=== PATIENT | male | born 1965 ===

== ENCOUNTER 2017-01-24 00:03 | Inpatient (IN) ==
--- NOTE | 2017-01-24 01:17 | Emergency Department Note ---
I, Silvia Lopez, am scribing for, and in the presence of, Avani Brewer DO 00:39. I, Avani Brewer DO, personally performed the services described in this documentation, ascribed by Silvia Lopez in my presence, and it is both accurate and complete . Arrival - Arrival Chief Complaint: Chest Pain Stated Complaint: chest pain ED Nursing Triage Note: Transfere from [facility] pt orignally went in for left knee pain, while pt was there he started having some chest pain. Pt rates pain 5/10. Denies any n/v but was having some sob. Mode of Arrival: Stretcher Limitations: No Limitations Source: Patient - History of Present Illness HPI Narrative: Pt is a 51 y/o male who was transferred from [facility] for further evaluation of chest pain and mild SOB that started yesterday. Pt went to [place] originally for left knee pain s/p buckle handle tear of medial meniscus of left knee, but started having a burning sensation in left arm and shoulder. Pt notes he thought the "burning" sensation was radiating from his knee. Pt has associated sxs of diaphoresis, chest pain and some SOB but denies nausea. Pt's BNP was 15 and Creatinine of 1.3, while at [place]. Pt's BP is elevated in ED, 164/103. Pt is still having some SOB in ED while on 2L O2 sat of 97. Onset (ago): day(s) Consistency: constant Severity: moderate Severity scale (1-10): 5 Quality: aching Allergies/Adverse Reactions: Allergies Allergy/AdvReac Type Severity Reaction Status Date / Time Eggplant Allergy Intermediate Swelling Verified 03/15/15 11:58 of Lip/Tongue/Throat Liver Allergy Intermediate Swelling Verified 03/15/15 11:58 of Lip/Tongue/Throat Home Medications: Home Medications Medication Instructions Recorded Confirmed Type Albuterol Sulfate [Albuterol 2 puff INH BID 03/15/15 01/22/17 History Inhaler] Aspirin [Ecotrin] 81 mg PO DAILY 03/15/15 01/22/17 History Fluticasone Propionate [Flovent 250 mcg IH BID 03/15/15 01/22/17 History 250 mcg Diskus] Gabapentin 300 mg PO DAILY 03/15/15 01/07/17 History Isosorbide Mononitrate [Imdur] 30 mg PO DAILY 03/15/15 01/07/17 History Losartan [Cozaar] 50 mg PO DAILY 03/15/15 01/07/17 History Metoprolol Succinate 50 mg PO DAILY 03/15/15 01/07/17 History Pantoprazole Tab [Protonix Tab] 40 mg PO DAILY 03/15/15 01/07/17 History Theophylline ER Tab 300 mg PO DAILY 03/15/15 01/07/17 History hydrALAZINE TAB [Apresoline Tab] 25 mg PO DAILY 03/15/15 03/15/15 History Meclizine [Antivert] 25 mg PO QID PRN #20 tablet 10/01/15 01/07/17 Rx Ondansetron [Ondansetron Odt] 4 mg PO Q4H PRN #10 tab.rapdis 10/01/15 Rx HYDROcodone/ACETAMIN 5-325 [[place] 2 tablet PO Q4H PRN #20 tablet 01/22/17 Rx 5-325] Mometasone/Formoterol 200-5 2 puff INH DAILY 01/22/17 01/22/17 History [Dulera 200-5] Montelukast Tab [Singulair Tab] 10 mg PO DAILY 01/22/17 01/22/17 History Review of System - Review of System 12 point system: reviewed and no additional remarkable complaints except as stated - Review of System Constitutional: Present: diaphoresis. Absent: chills, fever Respiratory: Present: respiratory distress (SOB) Cardiovascular: Present: chest pain Gastrointestinal: Absent: abdominal pain Musculoskeletal: Present: arm pain (burning sensation in bilateral arms radiates to shoulders), leg pain (left knee) Skin: Absent: rash Neurological: Absent: headache Medical,Surgical,& Family Hx - Medical History Cardio: History of: CHF, Hypertension (medication), Cardiovascular Problems ( enlarge heart) Neurology: History of: Peripheral Neuropathy (medication), Vertigo (medication as needed) No history of: Seizures HEENT: History of: Eye Problem (glasses) Comment Only: HEENT Problems (SINUS SURGERY TO BIOSPY SINUS GROWTH) Endocrine: History of: Dyslipidemia Respiratory: History of: Bronchitis, Pneumonia, Respiratory Problems ( bronchospasm) Gastrointestinal: History of: GERD (medication), Pancreatitis (3 years ago) - Surgical History Cardiac Surgeries: Sugical HX of: Cardiac Catheterization (2013) Abdominal Surgeries: Surgical HX of: Abdominal Surgery, EGD Orthopedic Surgeries: Comment Only: Total Knee Replacement (having left knee scope done january 22 2017) - Family History Family History: Reports;: Family Diabetes (brothers), Family Heart Disease ( BROTHER HEART MURMUR, MOM), Family Hypertension (brothers sister) Comment Only: Family Stroke (DAD) - Social History Smoking Status: Never smoker Exam Vital Signs: Vital Signs Temperature 97.3 F L 01/24/17 01:21 Pulse Rate 80 01/24/17 01:21 Respiratory Rate 22 01/24/17 01:21 Blood Pressure 154/105 01/24/17 01:21 O2 Sat by Pulse Oximetry 98 01/24/17 00:03 - General General appearance: alert, anxious, in distress - Head Head exam: Present: atraumatic, normocephalic - Eye Eye exam: Present: PERRL, EOMI - ENT ENT exam: Present: mucous membranes moist. Absent: mucous membranes dry - Neck Neck exam: Present: full ROM. Absent: tenderness - Chest Chest inspection: Present: symmetric chest wall rise. Absent: tenderness - Respiratory Respiratory exam: Present: normal lung sounds bilaterally. Absent: respiratory distress - Cardiovascular Cardiovascular exam: Present: regular rate, normal rhythm, normal heart sounds - Abdominal Exam Abdominal exam: Present: soft. Absent: tenderness - Extremities Exam Extremities exam: Present: tenderness (left knee has incision consistent to previous surgery with mild swelling around incision sites). Absent: full ROM ( limited due to pain), pedal edema, calf tenderness - Neurological Exam Neurological exam: Present: alert, oriented X3, CN II-XII intact - Psychiatric Psychiatric exam: Present: normal affect, normal mood - Skin Skin exam: Present: warm, dry Results - Labs Lab Results: I have reviewed the patients labs Labs: Laboratory Tests 01/24/17 01:14 Total Creatine Kinase 205 CK-MB (CK-2) 1.8 Troponin I 0.023
[2017-01-24 01:44] LABS: Troponin I Only 0.023 NG/ML (0.00-0.045)
[2017-01-24] MEDS ORDERED: ONDANSETRON 4 MG/2 ML VIAL ONE (01:48)
[2017-01-24] MEDS ORDERED: MORPHINE 2 MG/1 ML SYRINGE ONE (01:48)
[2017-01-24] MEDS ORDERED: ONDANSETRON 4 MG/2 ML VIAL IV STA (01:49)
[2017-01-24] MEDS ORDERED: MORPHINE 2 MG/1 ML SYRINGE IV STA (01:49)
[2017-01-24] MEDS ORDERED: HEPARIN 1,000 UNIT/1 ML VIAL IV STA (02:14)
[2017-01-24] MEDS ORDERED: HEPARIN 5,000 UNIT/1 ML VIAL ONE ×2 (02:30)
[2017-01-24 03:16] LABS: Basophils % 0.4 % (0.0-0.8); Eosinophils # 0.2 10*3/uL (0.0-0.87); Eosinophils % 2.1 % (0.00-10.9); Hemoglobin 14.6 GM/DL (14.0-18.0); Immature Granulocytes % 0.3 %; Immature Granulocytes Absolute 0.02 #; Lymphocytes # 2.2 10*3/uL (1.4-4.0); Lymphocytes % 31.3 % (21.2-54.2); Mean Corpuscular HGB Conc 34.8 GM/DL (32-36); Mean Corpuscular Hemoglobin 30 PG (27-34); Mean Corpuscular Volume 87.3 FL (87-102); Mean Platelet Volume 10.7 FL (9.6-12.0); Monocytes # 0.9 10*3/uL (0.11-0.8); Monocytes % 12.2 % (1.7-12.7); Neutrophils # 3.8 10*3/uL (1.4-7.4); Neutrophils % 53.7 % (38.7-73.9); Platelet Count 146 T/CUMM (130-400); Red Blood Count 4.81 MC/CUMM (3.8-5.5); Red Cell Distribution Width 12.9 % (9.3-17.3)
[2017-01-24 03:31] LABS: Calcium 8.4 MG/DL (8.5-10.1); Osmolality,Calculated 290.6 MOS/KG (273-304); Potassium 3.4 MMOL/L (3.5-5.1)
--- NOTE | 2017-01-24 03:39 | Hospitalist History & Physical ---
Assessment and Plan (1) Chest pain Status: Acute Assessment and plan: Currently stable, this month been result of the pulmonary embolus Current Visit: Yes (2) Asthma Status: Acute Assessment and plan: Stable continue home medications. She will be put on duo nebs while here dose of 1 unit dose every 6 hours and as needed Current Visit: Yes (3) Pulmonary embolus Status: Acute Assessment and plan: Patient is started on heparin protocol dose. Will follow PTT protocol for management of her current treatment. Tomorrow decisions will be made as to whether to continue Coumadin or put the patient on anti-factor X medications. Risk factor for his DVT obviously the recent surgery. Patient will be admitted to telemetry of the service of Dr. Braydon Warren Current Visit: Yes History of Present Illness Chief complaint: Chest pain Pulmonary embolism History of present illness: Mr. Wheeler is a 51 year old male with past medical history of hypertension, asthma, recent arthroscopic procedure on the left knee done yesterday started having some chest pain sent to [facility] patient was sent to the emergency room here. Emergency room a CT of verifies presence of a pulmonary embolus. Does have some cough pain in the left cuff. Is currently in the emergency room having started heparin. The emergency room doctor called me to come and see the patient for admission. Patient is currently stable enough. I am planning to send him to telemetry Home Medications Medication Instructions Recorded Confirmed Type Albuterol Sulfate [Albuterol 2 puff INH BID 03/15/15 01/22/17 History Inhaler] Aspirin [Ecotrin] 81 mg PO DAILY 03/15/15 01/22/17 History Fluticasone Propionate [Flovent 250 mcg IH BID 03/15/15 01/22/17 History 250 mcg Diskus] Gabapentin 300 mg PO DAILY 03/15/15 01/07/17 History Isosorbide Mononitrate [Imdur] 30 mg PO DAILY 03/15/15 01/07/17 History Losartan [Cozaar] 50 mg PO DAILY 03/15/15 01/07/17 History Metoprolol Succinate 50 mg PO DAILY 03/15/15 01/07/17 History Pantoprazole Tab [Protonix Tab] 40 mg PO DAILY 03/15/15 01/07/17 History Theophylline ER Tab 300 mg PO DAILY 03/15/15 01/07/17 History hydrALAZINE TAB [Apresoline Tab] 25 mg PO DAILY 03/15/15 03/15/15 History Meclizine [Antivert] 25 mg PO QID PRN #20 tablet 10/01/15 01/07/17 Rx Ondansetron [Ondansetron Odt] 4 mg PO Q4H PRN #10 tab.rapdis 10/01/15 Rx HYDROcodone/ACETAMIN 5-325 [[place] 2 tablet PO Q4H PRN #20 tablet 01/22/17 Rx 5-325] Mometasone/Formoterol 200-5 2 puff INH DAILY 01/22/17 01/22/17 History [Dulera 200-5] Montelukast Tab [Singulair Tab] 10 mg PO DAILY 01/22/17 01/22/17 History Allergies Allergy/AdvReac Type Severity Reaction Status Date / Time Eggplant Allergy Intermediate Swelling Verified 03/15/15 11:58 of Lip/Tongue/Throat Liver Allergy Intermediate Swelling Verified 03/15/15 11:58 of Lip/Tongue/Throat Medical,Surgical,& Family Hx - Medical History Cardio: History of: CHF, Hypertension (medication), Cardiovascular Problems ( enlarge heart) Neurology: History of: Peripheral Neuropathy (medication), Vertigo (medication as needed) No history of: Seizures HEENT: History of: Eye Problem (glasses) Comment Only: HEENT Problems (SINUS SURGERY TO BIOSPY SINUS GROWTH) Endocrine: History of: Dyslipidemia Respiratory: History of: Bronchitis, Pneumonia, Respiratory Problems ( bronchospasm) Gastrointestinal: History of: GERD (medication), Pancreatitis (3 years ago) - Surgical History Cardiac Surgeries: Sugical HX of: Cardiac Catheterization (2013) Abdominal Surgeries: Surgical HX of: Abdominal Surgery, EGD Orthopedic Surgeries: Comment Only: Total Knee Replacement (having left knee scope done january 22 2017) - Family History Family History: Reports;: Family Diabetes (brothers), Family Heart Disease ( BROTHER HEART MURMUR, MOM), Family Hypertension (brothers sister) Comment Only: Family Stroke (DAD) - Social History Smoking Status: Never smoker Frequency of Alcohol Use: None Type of Drug Use: None 12 point system: reviewed and no additional remarkable complaints except as stated (She is currently not in any distress. Review of systems involve the chief complaint is her presenting illness and past medical history 12 point system was locked) Exam - Constitutional General appearance: over weight - Head Head exam: Present: normocephalic, atraumatic - Eye Eye exam: Present: EOMI Pupils: Present: KATERIN - ENT ENT exam: Present: normal oropharynx - Neck Neck exam: Present: other (Neck is supple midline trachea no adenopathy no JVD) - Respiratory Respiratory exam: Present: clear to auscultation bilaterally, other (No wheezing no rales no rhonchi no respiratory distress) - Cardiovascular Cardiovascular exam: Present: regular rate and rhythm, other (No gallops no murmur) - GI/Abdominal GI/Abdominal exam: Present: normal bowel sounds, soft, other (No rebound tenderness no guarding) - Extremities Exam Extremities exam: Present: full ROM, other (Tender left calf patient has had surgery of the left knee. It is tender to palpation no effusion is obvious.) - Neurological Exam Neurological exam: Present: oriented X3, CN II-XII intact - Psychiatric Psychiatric exam: Present: normal affect, normal mood - Skin Skin exam: Present: normal color, warm, dry Results - Labs CBC & BMP: 01/24/17 01:14 01/24/17 01:14 Lab Results: I have reviewed the past 24 hour labs (Noted hypokalemia of 3.4 mild hyponatremia and hypochloremia)
[2017-01-24] MEDS ORDERED: hydrALAZINE 10 MG TABLET PO PRN (05:25)
--- NOTE | 2017-01-24 07:46 | CT Report ---
Exam: CT chest with contrast, PE study Date: 01/24/2017 Comparison: 09/26/2013 Reason: Shortness of breath, recent left knee scope Technique: Axial images of the chest were obtained after administration of 80 cc of IV Omnipaque 350 intravenous contrast. Coronal reformatted images were also acquired. The study was performed per pulmonary embolism protocol. Total DLP: 510.00 This exam was initially interpreted by [facility]. Findings: The heart is normal in size with small cardiac fat pads. Limited contrast in the nondilated thoracic aorta. Filling defects in the right segmental and subsegmental pulmonary arteries especially in the right upper lobe and right lower lobe. Calcified granulomata/nodes including calcified granulomata in the spleen. Fatty infiltration of the liver. Degenerative changes are noted. Progressive atelectasis especially at the lung bases. Impression: Evidence of right pulmonary emboli. Progressive atelectasis. Old healed granulomatous disease with fatty infiltration of liver. Dr. Saha discussed these findings with Dr. Brewer at 1:41 AM on 01/24/2017. Critical test results This CT exam was performed using one or more the following dose reduction techniques: Automated exposure control, adjustment of the MA and/or KV according to patient size, or use of iterative reconstruction technique. PROCEDURE INTERPRETED AT [facility] DEPARTMENT OF RADIOLOGY Final Report Signed by: Dr. Jelly Denis
[2017-01-24 09:13] LABS: Basophils % 0.4 % (0.0-0.8); Eosinophils # 0.1 10*3/uL (0.0-0.87); Eosinophils % 1.7 % (0.00-10.9); Hemoglobin 15.1 GM/DL (14.0-18.0); Immature Granulocytes % 0.3 %; Immature Granulocytes Absolute 0.02 #; Lymphocytes # 1.9 10*3/uL (1.4-4.0); Lymphocytes % 26.6 % (21.2-54.2); Mean Corpuscular HGB Conc 34.3 GM/DL (32-36); Mean Corpuscular Hemoglobin 30 PG (27-34); Mean Corpuscular Volume 87.8 FL (87-102); Mean Platelet Volume 11.1 FL (9.6-12.0); Monocytes # 0.8 10*3/uL (0.11-0.8); Monocytes % 11.2 % (1.7-12.7); Neutrophils # 4.3 10*3/uL (1.4-7.4); Neutrophils % 59.8 % (38.7-73.9); Platelet Count 164 T/CUMM (130-400); Red Blood Count 5.01 MC/CUMM (3.8-5.5); Red Cell Distribution Width 12.9 % (9.3-17.3); White Blood Count 7.2 T/CUMM (4-12)
[2017-01-24] MEDS: THEOPHYLLINE ER 300 MG TABLET PO SCH (09:36)
[2017-01-24] MEDS: GABAPENTIN 300 MG CAPSULE PO SCH (09:37)
[2017-01-24] MEDS: ASPIRIN EC 81 MG TABLET PO SCH (09:38)
[2017-01-24] MEDS: PANTOPRAZOLE 40 MG TABLET PO SCH (09:38)
[2017-01-24] MEDS: ISOSORBIDE MONONITRATE 30 MG TABLET PO SCH (09:38)
[2017-01-24] MEDS: MONTELUKAST 10 MG TABLET PO SCH (09:39)
[2017-01-24] MEDS: LOSARTAN 50 MG TABLET PO SCH (09:39)
[2017-01-24] MEDS: METOPROLOL SUCCINATE XL 50 MG TABLET PO SCH (09:39)
[2017-01-24] MEDS: hydrALAZINE 25 MG TABLET PO SCH (09:40)
--- NOTE | 2017-01-24 10:30 | EKG Report ---
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
[2017-01-24] MEDS: IPRATROPIUM 500 MCG/2.5 ML NEB RESP TX SCH ×3 (11:20→19:30)
[2017-01-24 12:21] LABS: PT Patient Result 10.8 SECS
--- NOTE | 2017-01-24 12:29 | Orthopedic Consult Note ---
History of Present Illness Chief complaint: Chest pain History of present illness: Mr. Wheeler is a 51 year old male Who underwent left knee arthroscopy for medial meniscal tear on 01/22/2017. On 08/2017 he started having chest pain and shortness of breath and was seen at [facility] and transferred to our hospital for further evaluation. CT scan showed a small right upper and lower pulmonary embolism and he was admitted to the hospital for anticoagulation and medical management. He states that he injured his knee in November and had knee swelling and some left leg swelling since the injury. He denies any numbness or tingling. Denies any other complaints. States he still has some mild swelling to his left knee, that the swelling to his left leg has resolved. Denies any other complaints. States that overall he is feeling much better today. Denies any chest pain or shortness of breath at the time of exam. He wants to know when he is allowed to go back to work. Home Medications Medication Instructions Recorded Confirmed Type Albuterol Sulfate [Albuterol 2 puff INH BID 03/15/15 01/24/17 History Inhaler] Aspirin [Ecotrin] 81 mg PO DAILY 03/15/15 01/24/17 History Gabapentin 300 mg PO Q8HR 03/15/15 01/24/17 History Isosorbide Mononitrate [Imdur] 30 mg PO DAILY 03/15/15 01/24/17 History Losartan [Cozaar] 100 mg PO DAILY 03/15/15 01/24/17 History Theophylline ER Tab 300 mg PO DAILY 03/15/15 01/24/17 History Meclizine [Antivert] 25 mg PO QID PRN #20 tablet 10/01/15 01/24/17 Rx HYDROcodone/ACETAMIN 5-325 [[place] 2 tablet PO Q4H PRN #20 tablet 01/22/17 Rx 5-325] Mometasone/Formoterol 200-5 2 puff INH BID 01/22/17 01/24/17 History [Dulera 200-5] Montelukast Tab [Singulair Tab] 10 mg PO DAILY 01/22/17 01/24/17 History Fluticasone Propionate [Flonase 1 spray BOTH NARES DAILY 01/24/17 01/24/17 History Allergy Relief] Ipratropium Neb [Atrovent Neb] 500 mcg RESP TX RT QID 01/24/17 01/24/17 History Metoprolol Tartrate Tab [Lopressor 50 mg PO BID 01/24/17 01/24/17 History Tab] Omeprazole 20 mg PO BID 01/24/17 01/24/17 History Allergies Allergy/AdvReac Type Severity Reaction Status Date / Time Eggplant Allergy Intermediate Swelling Verified 03/15/15 11:58 of Lip/Tongue/Throat Liver Allergy Intermediate Swelling Verified 03/15/15 11:58 of Lip/Tongue/Throat 12 point system: reviewed and no additional remarkable complaints except as stated Medical,Surgical,& Family Hx - Medical History Cardio: History of: CHF, Hypertension (medication), Cardiovascular Problems ( enlarge heart) Neurology: History of: Peripheral Neuropathy (medication), Vertigo (medication as needed) No history of: Seizures HEENT: History of: Eye Problem (glasses) Comment Only: HEENT Problems (SINUS SURGERY TO BIOSPY SINUS GROWTH) Endocrine: History of: Dyslipidemia Respiratory: History of: Bronchitis, Pneumonia, Respiratory Problems ( bronchospasm) Gastrointestinal: History of: GERD (medication), Pancreatitis (3 years ago) - Surgical History Cardiac Surgeries: Sugical HX of: Cardiac Catheterization (2013) Abdominal Surgeries: Surgical HX of: Abdominal Surgery, EGD Orthopedic Surgeries: Surgical HX of;: Orthopedic Surgery (Left knee arthroscopy 01/22/2017) Comment Only: Total Knee Replacement (having left knee scope done january 22 2017) - Family History Family History: Reports;: Family Diabetes (brothers), Family Heart Disease ( BROTHER HEART MURMUR, MOM), Family Hypertension (brothers sister) Comment Only: Family Stroke (DAD) - Social History Smoking Status: Never smoker Frequency of Alcohol Use: None Type of Drug Use: None Exam - Constitutional Vitals: Period Temp Pulse Resp BP Sys/Martini Pulse Ox Last 24 Hr 97.1 F-97.7 F 75-93 20-22 147-177/95-98 96-96 General appearance: normal weight, no acute distress - Head Head exam: Present: normal inspection, normocephalic, atraumatic - Eye Eye exam: Present: EOMI Pupils: Present: KATERIN - ENT ENT exam: Present: normal exam - Neck Neck exam: Present: normal inspection - Respiratory Respiratory exam: Absent: accessory muscle use, wheezes - Cardiovascular Cardiovascular exam: Present: regular rate and rhythm - GI/Abdominal GI/Abdominal exam: Absent: distended, firm - Extremities Exam Extremities exam: Present: normal inspection - Expanded Left Lower Hip exam: Present: normal inspection Upper Leg exam: Present: normal inspection Knee exam: Present: normal inspection (Bandages in place over incision sites. Minimal effusion. No erythema, ecchymosis, drainage. Compartments are soft.), swelling, tenderness Lower leg exam: Present: normal inspection. Absent: swelling, tenderness, Madhav 's sign Ankle exam: Present: normal inspection, full ROM Foot/Toe exam: Present: normal inspection, full ROM Neuro vascular tendon exam: Absent: motor deficit, sensory deficit - Neurological Exam Neurological exam: Present: alert, oriented X3, CN II-XII intact - Psychiatric Psychiatric exam: Present: normal affect, normal mood - Skin Skin exam: Present: normal color, warm Results - Labs CBC & BMP: 01/24/17 08:00 01/24/17 01:14 Lab Results: I have reviewed the past 24 hour labs - Diagnostic Findings Procedure: CT - chest: report reviewed by me, image reviewed by me Assessment and Plan (1) Pulmonary embolus Status: Acute Assessment and plan: Discussed with the patient and his who is present that risk of PE following a knee arthroscopy is less than 0.03%. Recommend continued anticoagulation and other medical management as per medicine. Current Visit: Yes (2) Bucket handle tear of medial meniscus of left knee Status: Acute Assessment and plan: Continue weightbearing as tolerated and range of motion exercises of the left knee. Crutches as needed for use. Discussed that the swelling is very common after the surgery and then it should continue to improve over time. Discussed I will defer return to work status to ask for Dr. Knutson in the medical service. Current Visit: No
[2017-01-24] MEDS: ENOXAPARIN 100 MG/ML SYRINGE SUBCUT SCH ×2 (12:37→23:39)
[2017-01-24] MEDS: MOMETASONE/FORMOTEROL 200-5 INHALER 8.8 GM INH SCH (16:37)
[2017-01-24] MEDS: WARFARIN 10 MG TABLET PO SCH (17:48)
[2017-01-25 06:10] LABS: Basophils % 0.5 % (0.0-0.8); Eosinophils # 0.2 10*3/uL (0.0-0.87); Eosinophils % 3.1 % (0.00-10.9); Hematocrit 42.1 VOL% (42.0-52.0); Immature Granulocytes % 0.5 %; Immature Granulocytes Absolute 0.03 #; Lymphocytes # 2.5 10*3/uL (1.4-4.0); Lymphocytes % 41.5 % (21.2-54.2); Mean Corpuscular HGB Conc 35.6 GM/DL (32-36); Mean Corpuscular Hemoglobin 30 PG (27-34); Monocytes # 0.7 10*3/uL (0.11-0.8); Monocytes % 11.7 % (1.7-12.7); Neutrophils # 2.6 10*3/uL (1.4-7.4); Neutrophils % 42.7 % (38.7-73.9); Platelet Count 180 T/CUMM (130-400); Red Blood Count 5.01 MC/CUMM (3.8-5.5); Red Cell Distribution Width 12.5 % (9.3-17.3); White Blood Count 6.1 T/CUMM (4-12)
[2017-01-25 06:13] LABS: PT Patient Result 10.6 SECS
[2017-01-25 06:53] LABS: Calcium 8.3 MG/DL (8.5-10.1); Magnesium 2.3 MG/DL (1.8-2.4); Osmolality,Calculated 290.6 MOS/KG (273-304); Potassium 3.6 MMOL/L (3.5-5.1)
[2017-01-25] MEDS: IPRATROPIUM 500 MCG/2.5 ML NEB RESP TX SCH ×4 (07:44→19:17)
[2017-01-25] MEDS: ALBUTEROL 2.5 MG/3 ML NEB RESP TX SCH ×2 (07:46→19:17)
[2017-01-25] MEDS: METOPROLOL SUCCINATE XL 50 MG TABLET PO SCH (08:31)
[2017-01-25] MEDS: MONTELUKAST 10 MG TABLET PO SCH (08:32)
[2017-01-25] MEDS: LOSARTAN 50 MG TABLET PO SCH (08:32)
[2017-01-25] MEDS: ISOSORBIDE MONONITRATE 30 MG TABLET PO SCH (08:32)
[2017-01-25] MEDS: PANTOPRAZOLE 40 MG TABLET PO SCH (08:32)
[2017-01-25] MEDS: THEOPHYLLINE ER 300 MG TABLET PO SCH (08:32)
[2017-01-25] MEDS: ASPIRIN EC 81 MG TABLET PO SCH (08:32)
[2017-01-25] MEDS: GABAPENTIN 300 MG CAPSULE PO SCH (08:32)
[2017-01-25] MEDS: hydrALAZINE 25 MG TABLET PO SCH (08:32)
[2017-01-25] MEDS: MOMETASONE/FORMOTEROL 200-5 INHALER 8.8 GM INH SCH (08:35)
[2017-01-25] MEDS: FLUTICASONE 50 MCG NASAL SPRAY 16 GM BOTTLE BOTH NARES SCH (09:45)
--- NOTE | 2017-01-25 11:02 | Orthopedic Progress Note ---
Assessment and Plan (1) Pulmonary embolus Status: Acute Assessment and plan: Continue medical management Current Visit: Yes (2) Bucket handle tear of medial meniscus of left knee Status: Acute Assessment and plan: Continue weightbearing as tolerated and range of motion exercises of the left knee. Crutches as needed for use. Current Visit: No Orthopedics - Subjective Interval history: States is feeling better today. Is working on range of motion exercises to his left knee. Exam - Constitutional Vitals: Period Temp Pulse Resp BP Sys/Martini Pulse Ox Last 24 Hr 96.8 F-97.9 F 78-94 16-20 105-160/62-93 95-99 - Extremities Exam Extremities exam: Present: normal inspection (Left lower extremity: Bandages overlying previous surgical incisions. No erythema. Decreased knee swelling from yesterday. Compartments are soft. Calf is supple. No lower leg swelling. Full active range of motion foot and ankle. Cap refill brisk. Sensation is intact.) Results - Labs CBC & BMP: 01/25/17 05:37 01/25/17 05:37 Lab Results: I have reviewed the past 24 hour labs
[2017-01-25] MEDS: ENOXAPARIN 100 MG/ML SYRINGE SUBCUT SCH ×2 (11:04→23:00)
--- NOTE | 2017-01-25 11:37 | Hospitalist Progress Note ---
Assessment and Plan (1) Pulmonary embolus Status: Acute Assessment and plan: The patient is admitted to the hospital for pulmonary embolism. INR this morning is 1 after having Coumadin first dose last night. We will continue the patient on therapeutic dose Lovenox until INR is greater than 2. Current Visit: Yes Qualifiers: Pulmonary embolism type: other Chronicity: acute Acute cor pulmonale presence: without acute cor pulmonale Qualified Code(s): I26.99 - Other pulmonary embolism without acute cor pulmonale Hospitalist: Subjective Interval history: The patient is resting quietly in bed today. He complains of some sharp pleuritic discomfort in the left posterior and lower lung field. The patient does not complain of shortness of breath or angina. Exam - Constitutional Vitals: Period Temp Pulse Resp BP Sys/Martini Pulse Ox Last 24 Hr 96.8 F-97.9 F 78-94 14-20 105-160/62-93 95-99 Exam: Constitutional System: Mild distress on account of pleurisy. No tremulousness. Head: Normocephalic, atraumatic. Ears, Nose and Throat System: No evidence of Otitis or Mastoiditis. No epistaxis or discharge Eyes System: Pupils equal, round, and reactive. Extraocular muscles intact. Neck: Supple, without adenopathy, No jugular venous distention. No thyromegaly , neck mass, or prior surgery apparent. Respiratory System: Chest clear to auscultation. Cardiovascular System: Heart with regular rate and rhythm. No murmur. GI System: Abdomen soft, nontender. Normo active bowel sounds present. Musculoskeletal System: limbs with trace edema left knee in the post operative state. No drainage from wounds. Neurological System: No discernable sensory deficit. No aphasia Psychiatric System: Conversation is rational Results - Labs CBC & BMP: 01/25/17 05:37 01/25/17 05:37 Lab Results: I have reviewed the past 24 hour labs
[2017-01-25] MEDS: WARFARIN 10 MG TABLET PO SCH (17:36)
[2017-01-26] MEDS: IPRATROPIUM 500 MCG/2.5 ML NEB RESP TX SCH ×4 (08:05→19:51)
[2017-01-26] MEDS: ALBUTEROL 2.5 MG/3 ML NEB RESP TX SCH ×2 (08:05→19:51)
[2017-01-26 08:12] LABS: INR 1.2; PT Patient Result 12.4 SECS
[2017-01-26] MEDS: MOMETASONE/FORMOTEROL 200-5 INHALER 8.8 GM INH SCH (09:27)
[2017-01-26] MEDS: FLUTICASONE 50 MCG NASAL SPRAY 16 GM BOTTLE BOTH NARES SCH (09:28)
[2017-01-26] MEDS: MONTELUKAST 10 MG TABLET PO SCH (09:29)
[2017-01-26] MEDS: METOPROLOL SUCCINATE XL 50 MG TABLET PO SCH (09:29)
[2017-01-26] MEDS: ISOSORBIDE MONONITRATE 30 MG TABLET PO SCH (09:29)
[2017-01-26] MEDS: GABAPENTIN 300 MG CAPSULE PO SCH (09:29)
[2017-01-26] MEDS: hydrALAZINE 25 MG TABLET PO SCH (09:29)
[2017-01-26] MEDS: LOSARTAN 50 MG TABLET PO SCH (09:29)
[2017-01-26] MEDS: ASPIRIN EC 81 MG TABLET PO SCH (09:29)
[2017-01-26] MEDS: PANTOPRAZOLE 40 MG TABLET PO SCH (09:29)
[2017-01-26] MEDS: THEOPHYLLINE ER 300 MG TABLET PO SCH (09:29)
[2017-01-26] MEDS: ENOXAPARIN 100 MG/ML SYRINGE SUBCUT SCH ×2 (11:24→22:56)
--- NOTE | 2017-01-26 13:55 | Hospitalist Progress Note ---
Assessment and Plan (1) Pulmonary embolus Status: Acute Assessment and plan: The patient is admitted to the hospital for pulmonary embolism. INR this morning is 1.2 after having Coumadin second dose last night. We will continue the patient on therapeutic dose Lovenox until INR is greater than 2. Current Visit: Yes Qualifiers: Pulmonary embolism type: other Chronicity: acute Acute cor pulmonale presence: without acute cor pulmonale Qualified Code(s): I26.99 - Other pulmonary embolism without acute cor pulmonale Hospitalist: Subjective Interval history: The patient was admitted to the hospital with post arthroscopy pulmonary embolism. The patient began having shortness of breath and pleuritic discomfort 24 hours following surgery and was readmitted for therapy. The patient has now had 2 doses of Coumadin and INR is 1.2. The patient continues on Lovenox. The patient has less pleurisy today. The patient is cooperating with physical therapy. Exam - Constitutional Vitals: Period Temp Pulse Resp BP Sys/Martini Pulse Ox Last 24 Hr 97 F-98.6 F 83-100 16-20 123-177/79-99 96-99 Exam: Constitutional System: Mild distress on account of pleurisy. No tremulousness. Head: Normocephalic, atraumatic. Ears, Nose and Throat System: No evidence of Otitis or Mastoiditis. No epistaxis or discharge Eyes System: Pupils equal, round, and reactive. Extraocular muscles intact. Neck: Supple, without adenopathy, No jugular venous distention. No thyromegaly , neck mass, or prior surgery apparent. Respiratory System: Chest clear to auscultation. Cardiovascular System: Heart with regular rate and rhythm. No murmur. GI System: Abdomen soft, nontender. Normo active bowel sounds present. Musculoskeletal System: limbs with trace edema left knee in the post operative state. No drainage from wounds. Neurological System: No discernable sensory deficit. No aphasia Psychiatric System: Conversation is rational Results - Labs CBC & BMP: 01/25/17 05:37 01/25/17 05:37 Lab Results: I have reviewed the past 24 hour labs Labs: INR equals 1.2
[2017-01-26] MEDS ORDERED: MECLIZINE 25 MG TABLET PO PRN (14:11)
[2017-01-26] MEDS ORDERED: WARFARIN 5 MG TABLET ONE (17:46)
[2017-01-26] MEDS: WARFARIN 10 MG TABLET PO SCH (17:47)
[2017-01-27 06:55] LABS: INR 1.4; PT Patient Result 15.5 SECS
[2017-01-27] MEDS: IPRATROPIUM 500 MCG/2.5 ML NEB RESP TX SCH ×4 (08:03→20:08)
[2017-01-27] MEDS: ALBUTEROL 2.5 MG/3 ML NEB RESP TX SCH ×2 (08:03→20:08)
[2017-01-27] MEDS: THEOPHYLLINE ER 300 MG TABLET PO SCH (09:40)
[2017-01-27] MEDS: hydrALAZINE 25 MG TABLET PO SCH (09:40)
[2017-01-27] MEDS: LOSARTAN 50 MG TABLET PO SCH (09:40)
[2017-01-27] MEDS: ASPIRIN EC 81 MG TABLET PO SCH (09:40)
[2017-01-27] MEDS: MONTELUKAST 10 MG TABLET PO SCH (09:40)
[2017-01-27] MEDS: PANTOPRAZOLE 40 MG TABLET PO SCH (09:41)
[2017-01-27] MEDS: MOMETASONE/FORMOTEROL 200-5 INHALER 8.8 GM INH SCH (09:41)
[2017-01-27] MEDS: GABAPENTIN 300 MG CAPSULE PO SCH (09:41)
[2017-01-27] MEDS: METOPROLOL SUCCINATE XL 50 MG TABLET PO SCH (09:41)
[2017-01-27] MEDS: ISOSORBIDE MONONITRATE 30 MG TABLET PO SCH (09:41)
[2017-01-27] MEDS: FLUTICASONE 50 MCG NASAL SPRAY 16 GM BOTTLE BOTH NARES SCH (09:42)
[2017-01-27] MEDS ORDERED: POLYETHYLENE GLYCOL POWDER 17 GM PACK PO PRN (10:46)
[2017-01-27] MEDS ORDERED: DOCUSATE SODIUM 100 MG CAPSULE PO PRN (10:46)
--- NOTE | 2017-01-27 10:49 | Hospitalist Progress Note ---
Assessment and Plan - Time spent with patient Time spent with patient: Greater than 30 minutes (1) Bucket handle tear of medial meniscus of left knee Status: Acute Assessment and plan: Weightbearing as tolerated. Pain medication when necessary. Follow orthopedic recommendations. Current Visit: No (2) Chest pain Status: Acute Current Visit: Yes (3) Asthma Status: Acute Assessment and plan: Not in acute exacerbation at this time. Bronchodilators and supplemental oxygen as needed. Current Visit: Yes (4) Pulmonary embolus Status: Acute Assessment and plan: Switch to Eliquis in the evening tomorrow after removal of sutures and discharged later in the evening. Current Visit: Yes Qualifiers: Pulmonary embolism type: other Chronicity: acute Acute cor pulmonale presence: without acute cor pulmonale Qualified Code(s): I26.99 - Other pulmonary embolism without acute cor pulmonale Hospitalist: Subjective Interval history: Patient was seen and examined together with his nurse, and he was lying comfortably in bed. He denies chest pain or shortness of breath. I reviewed the results of his CT angiogram PE protocol which showed right-sided pulmonary embolism. INR is still subtherapeutic. [place] to be removed from his left knee today I understand. We will ask his orthopedician whether he can be on eliquis from tomorrow. He has [employer] insurance which I think will cover for eliquis. Patient reported only minimal pain at his Op site in the left knee. Patient had arthroscopic repair of bucket handle tear of medial meniscus of left knee on 01/24 Ten point review of systems negative except as mentioned above. Exam - Constitutional Vitals: Period Temp Pulse Resp BP Sys/Martini Pulse Ox Last 24 Hr 97.8 F-98.4 F 88-99 16-22 139-171/86-109 95-99 General appearance: over weight - Head Head exam: Present: normocephalic, atraumatic - Eye Eye exam: Present: EOMI Pupils: Present: KATERIN - Neck Neck exam: Absent: lymphadenopathy, thyromegaly - Respiratory Respiratory exam: Present: clear to auscultation bilaterally. Absent: rales - Cardiovascular Cardiovascular exam: Present: regular rate and rhythm. Absent: diastolic murmur , JVD, systolic murmur - GI/Abdominal GI/Abdominal exam: Present: normal bowel sounds - Extremities Exam Extremities exam: Present: normal capillary refill. Absent: edema - Expanded Left Lower Neuro vascular tendon exam: Absent: pulse deficit, sensory deficit - Neurological Exam Neurological exam: Present: alert, oriented X3, CN II-XII intact - Psychiatric Psychiatric exam: Present: normal affect, normal mood Results - Labs CBC & BMP: 01/25/17 05:37 01/25/17 05:37 Lab Results: I have reviewed the past 24 hour labs Specialty Discharge - Follow Up or Referrals
--- NOTE | 2017-01-27 11:12 | Orthopedic Progress Note ---
Orthopedics - Subjective Interval history: Patient known to me from previous arthroscopy. Transitioning to p.o. anticoagulant likely home tomorrow we will remove alonzo prior to discharge would likely benefit from outpatient PT. Exam - Constitutional Vitals: Period Temp Pulse Resp BP Sys/Martini Pulse Ox Last 24 Hr 97.8 F-98.4 F 88-99 16-22 139-171/86-109 95-99 Results - Labs CBC & BMP: 01/25/17 05:37 01/25/17 05:37 Specialty Discharge - Follow Up or Referrals
[2017-01-27] MEDS: ENOXAPARIN 100 MG/ML SYRINGE SUBCUT SCH ×2 (11:42→23:40)
[2017-01-27] MEDS ORDERED: WARFARIN 5 MG TABLET ONE (17:31)
[2017-01-27] MEDS: WARFARIN 10 MG TABLET PO SCH (18:02)
[2017-01-28 06:27] LABS: Basophils % 0.7 % (0.0-0.8); Eosinophils # 0.2 10*3/uL (0.0-0.87); Eosinophils % 3.3 % (0.00-10.9); Hematocrit 46.8 VOL% (42.0-52.0); Hemoglobin 16.5 GM/DL (14.0-18.0); Immature Granulocytes % 0.3 %; Immature Granulocytes Absolute 0.02 #; Lymphocytes # 1.7 10*3/uL (1.4-4.0); Lymphocytes % 27.9 % (21.2-54.2); Mean Corpuscular HGB Conc 35.3 GM/DL (32-36); Mean Corpuscular Hemoglobin 30 PG (27-34); Mean Corpuscular Volume 85.1 FL (87-102); Mean Platelet Volume 11.1 FL (9.6-12.0); Monocytes # 0.8 10*3/uL (0.11-0.8); Monocytes % 13.6 % (1.7-12.7); Neutrophils # 3.3 10*3/uL (1.4-7.4); Neutrophils % 54.2 % (38.7-73.9); Platelet Count 217 T/CUMM (130-400); Red Cell Distribution Width 12.9 % (9.3-17.3); White Blood Count 6.1 T/CUMM (4-12)
[2017-01-28 06:48] LABS: INR 1.8; PT Patient Result 20.2 SECS
[2017-01-28 06:54] LABS: Calcium 9.4 MG/DL (8.5-10.1); Magnesium 2.3 MG/DL (1.8-2.4)
[2017-01-28] MEDS: ALBUTEROL 2.5 MG/3 ML NEB RESP TX SCH ×2 (08:11→21:22)
[2017-01-28] MEDS: IPRATROPIUM 500 MCG/2.5 ML NEB RESP TX SCH ×4 (08:11→21:22)
[2017-01-28] MEDS: PANTOPRAZOLE 40 MG TABLET PO SCH (09:47)
[2017-01-28] MEDS: THEOPHYLLINE ER 300 MG TABLET PO SCH (09:47)
[2017-01-28] MEDS: LOSARTAN 50 MG TABLET PO SCH (09:47)
[2017-01-28] MEDS: hydrALAZINE 25 MG TABLET PO SCH (09:48)
[2017-01-28] MEDS: MONTELUKAST 10 MG TABLET PO SCH (09:48)
[2017-01-28] MEDS: FLUTICASONE 50 MCG NASAL SPRAY 16 GM BOTTLE BOTH NARES SCH (09:48)
[2017-01-28] MEDS: ISOSORBIDE MONONITRATE 30 MG TABLET PO SCH (09:48)
[2017-01-28] MEDS: GABAPENTIN 300 MG CAPSULE PO SCH (09:48)
[2017-01-28] MEDS: MOMETASONE/FORMOTEROL 200-5 INHALER 8.8 GM INH SCH (09:48)
[2017-01-28] MEDS: ASPIRIN EC 81 MG TABLET PO SCH (09:48)
[2017-01-28] MEDS: METOPROLOL SUCCINATE XL 50 MG TABLET PO SCH (09:50)
[2017-01-28] MEDS: ENOXAPARIN 100 MG/ML SYRINGE SUBCUT SCH ×2 (10:23→23:03)
--- NOTE | 2017-01-28 13:12 | Hospitalist Progress Note ---
Assessment and Plan (1) Bucket handle tear of medial meniscus of left knee Status: Acute Assessment and plan: Weightbearing as tolerated. Pain medication when necessary. Follow orthopedic recommendations. Current Visit: No (2) Chest pain Status: Acute Current Visit: Yes (3) Asthma Status: Acute Assessment and plan: Not in acute exacerbation at this time. Bronchodilators and supplemental oxygen as needed. Current Visit: Yes (4) Pulmonary embolus Status: Acute Assessment and plan: Switch to Eliquis in the evening tomorrow after removal of sutures and discharged later in the evening. Current Visit: Yes Qualifiers: Pulmonary embolism type: other Chronicity: acute Acute cor pulmonale presence: without acute cor pulmonale Qualified Code(s): I26.99 - Other pulmonary embolism without acute cor pulmonale Hospitalist: Subjective Interval history: I was called by patient's nurse regarding his chest pain. He reported left- sided chest pain just under the left breast radiating to both arms but not to the jaw. Reported nausea but no vomiting. He is a little bit short of breath. He also reports pain and swelling in his left knee. He is status post left knee intervention at couple of days ago. He has right-sided PE. We will go ahead and get cardiac enzymes as well as EKG and chest x-ray before to evaluate. He is on full dose anticoagulation with bridging Lovenox and then warfarin. Will give 1 dose of aspirin therapeutic and await result of enzymes with EKG. Exam - Constitutional Vitals: Period Temp Pulse Resp BP Sys/Martini Pulse Ox Last 24 Hr 97.5 F-98.1 F 81-112 16-22 148-173/93-109 21-99 - Cardiovascular Cardiovascular exam: Present: other (Chest pain reproducible in the left chest wall) Results - Labs CBC & BMP: 01/28/17 05:46 01/28/17 05:46 Specialty Discharge - Follow Up or Referrals Follow up with: Jasvir Knutson Jr., MD [Physician] - 02/18/17 8:15 am
[2017-01-28] MEDS ORDERED: ASPIRIN CHEW 81 MG TABLET PO ONE (13:15)
[2017-01-28] MEDS ORDERED: MORPHINE 2 MG/1 ML SYRINGE IV PRN (13:16)
--- NOTE | 2017-01-28 13:22 | EKG Report ---
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
[2017-01-28 14:17] LABS: Troponin I Only < 0.015 NG/ML (0.00-0.045)
[2017-01-28 18:22] LABS: Troponin I Only < 0.015 NG/ML (0.00-0.045)
[2017-01-28] MEDS ORDERED: WARFARIN 5 MG TABLET ONE (18:45)
[2017-01-28] MEDS: WARFARIN 10 MG TABLET PO SCH (18:54)
[2017-01-28] MEDS ORDERED: amLODIPine 10 MG TABLET PO ONE (19:53)
[2017-01-29] MEDS: ALBUTEROL 2.5 MG/3 ML NEB RESP TX SCH ×2 (07:00→19:04)
[2017-01-29] MEDS: IPRATROPIUM 500 MCG/2.5 ML NEB RESP TX SCH ×4 (07:00→19:04)
[2017-01-29] MEDS: GABAPENTIN 300 MG CAPSULE PO SCH (10:07)
[2017-01-29] MEDS: THEOPHYLLINE ER 300 MG TABLET PO SCH (10:07)
[2017-01-29] MEDS: hydrALAZINE 25 MG TABLET PO SCH (10:07)
[2017-01-29] MEDS: ASPIRIN EC 81 MG TABLET PO SCH (10:07)
[2017-01-29] MEDS: PANTOPRAZOLE 40 MG TABLET PO SCH (10:07)
[2017-01-29] MEDS: amLODIPine 10 MG TABLET PO SCH (10:07)
[2017-01-29] MEDS: MONTELUKAST 10 MG TABLET PO SCH (10:07)
[2017-01-29] MEDS: ISOSORBIDE MONONITRATE 30 MG TABLET PO SCH (10:07)
[2017-01-29] MEDS: METOPROLOL SUCCINATE XL 50 MG TABLET PO SCH (10:07)
[2017-01-29] MEDS: LOSARTAN 50 MG TABLET PO SCH (10:07)
[2017-01-29] MEDS: MOMETASONE/FORMOTEROL 200-5 INHALER 8.8 GM INH SCH (10:08)
[2017-01-29] MEDS: FLUTICASONE 50 MCG NASAL SPRAY 16 GM BOTTLE BOTH NARES SCH (10:09)
--- NOTE | 2017-01-29 12:33 | EKG Report ---
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
[2017-01-29] MEDS: ENOXAPARIN 100 MG/ML SYRINGE SUBCUT SCH ×3 (14:55→21:19)
--- NOTE | 2017-01-29 15:00 | XRay Report ---
Exam: XR chest 1V Indication: Chest pain, history of pulmonary emboli Comparison study: Chest radiograph 01/05/[address] PE protocol 01/24/2017 Findings: The heart, mediastinum and bony structures are stable from prior. There is no focal consolidation, pneumothorax or pleural effusion identified. Partially calcified right suprahilar lymph node appears unchanged. Impression: No acute cardiopulmonary process. No significant change from prior. PROCEDURE INTERPRETED AT [facility] DEPARTMENT OF RADIOLOGY Final Report Signed by: Tavo Evans
--- NOTE | 2017-01-29 15:30 | Ultrasound Report ---
History: Shortness of breath. Pulmonary embolus Date: 01/29/2017 Study: Bilateral lower extremity color flow venous Doppler study Comparison exam: No previous venous ultrasound Color Doppler, wave form analysis, and compression analysis of the deep veins of both lower extremities from the common femoral vein level through the popliteal vein level shows that the veins are readily compressible. There is no abnormal intraluminal material to suggest thrombus. Waveform analysis is unremarkable. Ultrasound images were captured and archived Impression: Normal bilateral lower extremity color flow venous Doppler study. No evidence of acute DVT PROCEDURE INTERPRETED AT [facility] DEPARTMENT OF RADIOLOGY Final Report Signed by: Dr. Ramya Gonzalez
--- NOTE | 2017-01-29 15:47 | Hospitalist Progress Note ---
Assessment and Plan - Time spent with patient Time spent with patient: Less than 30 minutes (1) Pulmonary embolus Status: Acute Assessment and plan: CT pulmonary embolus protocol revealed right-sided pulmonary embolism. No pulmonary embolus on the left. Switch to Eliquis prior to discharge. Discussed this with patient. Currently, patient is on warfarin with subtherapeutic INR and being bridged with Lovenox. Current Visit: Yes Qualifiers: Pulmonary embolism type: other Chronicity: acute Acute cor pulmonale presence: without acute cor pulmonale Qualified Code(s): I26.99 - Other pulmonary embolism without acute cor pulmonale (2) Bucket handle tear of medial meniscus of left knee Status: Acute Assessment and plan: Weightbearing as tolerated. Pain medication when necessary. Follow orthopedic recommendations. Current Visit: No (3) Chest pain Status: Acute Assessment and plan: Patient said left-sided chest pain could be related to new pulmonary embolism on the left side. Troponin cycled x3 remained negative. Electrocardiogram reveals sinus tachycardia. Consulted Cardiology to see patient for discharge. Follow Cardiology recommendations. Current Visit: Yes (4) Asthma Status: Acute Assessment and plan: Not in acute exacerbation at this time. Bronchodilators and supplemental oxygen as needed. Current Visit: Yes Hospitalist: Subjective Interval history: The patient was admitted to the hospital with left knee post arthroscopy pulmonary embolism. The patient began having shortness of breath and pleuritic discomfort 24 hours following surgery and CT chest PE protocol revealed right sided Pulmonary embolism. He was readmitted for therapy. patient developed left sided chest pain last evening. Cardiac enzymes were cycled and remained negative. Electrocardiogram revealed sinus tachycardia. I did consult Cardiology for patient's chest pain The patient is currently on Lovenox and coumadin. He can be switched to eliquis or xarelto on discharge. Patient seen and examined. History reports intermittent left-sided chest pain under the left breast. He denies shortness of breath. Defer further management to Cardiology. Exam - Constitutional Vitals: Period Temp Pulse Resp BP Sys/Martini Pulse Ox Last 24 Hr 97.9 F-98.3 F 77-107 20-20 136-163/89-100 92-100 General appearance: over weight - Head Head exam: Present: normocephalic, atraumatic - Eye Eye exam: Present: EOMI Pupils: Present: KATERIN - Neck Neck exam: Absent: lymphadenopathy, thyromegaly - Respiratory Respiratory exam: Present: clear to auscultation bilaterally - Cardiovascular Cardiovascular exam: Absent: diastolic murmur, JVD, systolic murmur - Extremities Exam Extremities exam: Absent: edema - Neurological Exam Neurological exam: Present: alert, oriented X3 - Psychiatric Psychiatric exam: Present: normal affect, normal mood - Skin Skin exam: Present: normal color Results - Labs CBC & BMP: 01/28/17 05:46 01/28/17 05:46 Lab Results: I have reviewed the past 24 hour labs Specialty Discharge - Follow Up or Referrals Follow up with: Jasvir Knutson Jr., MD [Physician] - 02/18/17 8:15 am
--- NOTE | 2017-01-29 17:36 | Cardiology Consult Note ---
Marques Sanchez Vanessa, RN, am scribing for, and in the presence of, Alessandro Garay MD 17:36. Assessment and Plan - Time spent with patient Time spent with patient: Greater than 30 minutes (Due to assessment, planning, documentation, and medication review) (1) Pulmonary emboli Status: Acute Assessment and plan: Right sided emboli. Coumadin therapy. Echocardiogram pending. Current Visit: Yes (2) Bucket handle tear of medial meniscus of left knee Status: Acute Assessment and plan: Status post left knee arthroscopy on 01/22/[address] Knutson. Defer primary management to orthopedic services. Current Visit: No (3) Chest pain Status: Acute Assessment and plan: This is likely secondary to the pulmonary embolus. There is no evidence of cardiac ischemia at this time. Current Visit: Yes (4) Hypertension Status: Chronic Assessment and plan: This is not well controlled. Adjust medication regimen. Current Visit: Yes (5) Dyslipidemia Status: Acute Current Visit: Yes (6) Nonischemic cardiomyopathy Status: Acute Current Visit: Yes (7) Chronic kidney disease (CKD) Status: Acute Current Visit: Yes Qualifiers: Chronic kidney disease stage: stage 3 (moderate) Qualified Code(s): N18.3 - Chronic kidney disease, stage 3 (moderate) History of Present Illness - Data of Consult Patient: known to practice within the last 3 years Consult date: 01/29/17 Requesting Physician: Luis Juarez Primary care physician: [facility] - Consult Narrative Reason for consult: CP History of present illness: Mr. Wheeler is a 51 year old male who is routinely followed by Dr. Ashlyn Cortez for cardiology. Risk factors significant for hypertension, hyperlipidemia, and obesity. Past medical history includes nonischemic cardiomyopathy with EF of 15% most recently improved to 40%, chronic kidney disease stage III, congestive heart failure, GERD, and pancreatitis. He has also had a history of shortness of breath, has been evaluated by Dr. Wadsworth, and has had normal PFTs and CT of the chest. He presented to the [facility] on 01/24/17 for left knee pain status post left knee arthroscopy on 01/22/17 for meniscus tear of left knee performed by Dr. Knutson. While he was there he apparently developed some chest pain with mild shortness of breath, and he was transferred to [place]'s ER for further evaluation. Cardiac biomarkers were negative, twelve-lead EKG revealed sinus rhythm without acute ST segment changes. He had no diaphoresis, nausea or vomiting, palpitation, or presyncope. Chest CT obtained while in the ER revealed right-sided pulmonary emboli. He was admitted to telemetry to hospitalist service for further monitoring and treatment of PE. Since admission, he has been evaluated by orthopedic surgery. Physical therapy has been started. Medical management for pulmonary emboli has been started, and he is currently taking Coumadin 10 mg every evening. Most recent INR today is 1.8. He has been hemodynamically stable, but he has had left-sided chest pain today which she reported to radiate to both arms associated with swelling and pain of the left knee, and cardiology has been consulted to evaluate patient. Twelve-lead EKG this afternoon with some nonspecific T-wave changes but no acute ST segment elevation or ischemia. Venous Doppler ultrasound of bilateral lower extremities was obtained this afternoon also for lower extremity swelling , and we will review these results when available. Echocardiogram has been ordered, and this will be reviewed as well. He was last evaluated by Dr. Cortez in clinic on 11/18/16 for routine 6 month follow-up. He denied any chest pain or shortness of breath at that time. He had no LE edema or orthopnea. Blood pressures were well controlled at that time. Echocardiogram obtained on 10/20/16 showed normal LV size, mild LVH with moderately decreased LV systolic function, grade 1 diastolic dysfunction and ejection fraction of 40%. All other cardiac chambers of normal size and function, and there was no significant valvular disease. Most recent exercise nuclear stress test was October 2014, had nonspecific ST- T changes, and was negative for ischemia. Previous left and right heart catheterization in September 2013 revealed no significant coronary artery disease , and dilated cardiomyopathy with ejection fraction of 15% was diagnosed. As previously mentioned, ejection fraction has improved to 40% with medical management. Patient seen and examined on telemetry. is present at bedside. Patient lying in bed watching TV without acute distress noted. He denies chest pain specifically in the area, but does state that he has some discomfort in epigastric area. Describes this discomfort as a pressure, and reports that this does radiate up to his chest and sometimes into both arms. Admits to some nausea with no vomiting. Denies diaphoresis, shortness of breath, palpitation, or presyncope with this. Reports this discomfort started today after his left knee arthroscopy. Denies orthopnea, PND, or LE edema. He is in a sinus rhythm per telemetry monitoring without overt ectopy or arrhythmia noted, and he does have some slight tachycardia with pulse rate no greater than 105 bpm. He is hypertensive with systolic blood pressure 135-170 and diastolic BP 100. CC: Luis Juarez MD - Home Medications and Allergies Home Medications: Home Medications Medication Instructions Recorded Confirmed Type Albuterol Sulfate [Albuterol 2 puff INH BID 03/15/15 01/24/17 History Inhaler] Aspirin [Ecotrin] 81 mg PO DAILY 03/15/15 01/24/17 History Gabapentin 300 mg PO Q8HR 03/15/15 01/24/17 History Isosorbide Mononitrate [Imdur] 30 mg PO DAILY 03/15/15 01/24/17 History Losartan [Cozaar] 100 mg PO DAILY 03/15/15 01/24/17 History Theophylline ER Tab 300 mg PO DAILY 03/15/15 01/24/17 History Meclizine [Antivert] 25 mg PO QID PRN #20 tablet 10/01/15 01/24/17 Rx HYDROcodone/ACETAMIN 5-325 [[place] 2 tablet PO Q4H PRN #20 tablet 01/22/17 Rx 5-325] Mometasone/Formoterol 200-5 2 puff INH BID 01/22/17 01/24/17 History [Dulera 200-5] Montelukast Tab [Singulair Tab] 10 mg PO DAILY 01/22/17 01/24/17 History Albuterol/Ipratropium Neb [Duoneb] 3 ml RESP TX RT QID 01/24/17 01/24/17 History Fluticasone Propionate [Flonase 1 spray BOTH NARES DAILY 01/24/17 01/24/17 History Allergy Relief] Metoprolol Tartrate Tab [Lopressor 50 mg PO BID 01/24/17 01/24/17 History Tab] Omeprazole 20 mg PO BID 01/24/17 01/24/17 History Allergies/Adverse Reactions: Allergies Allergy/AdvReac Type Severity Reaction Status Date / Time Eggplant Allergy Intermediate Swelling Verified 03/15/15 11:58 of Lip/Tongue/Throat Liver Allergy Intermediate Swelling Verified 03/15/15 11:58 of Lip/Tongue/Throat - Constitutional Constitutional: Present: fatigue, weakness. Absent: anorexia, chills, daytime sleepiness, excessive sweating, fever(s), frequent falls, stops breathing during sleep, weight gain, weight loss - EENT Eyes: Absent: blurry vision Ears: Absent: decreased hearing Nose, mouth and throat: Absent: dysphagia, epistaxis, neck mass, tongue swelling - Cardiovascular Cardiovascular: Present: dyspnea (Upon presentation; none currently), other ( Epigastric pain). Absent: chest pain at rest, chest pain with activity, claudication, diaphoresis, edema, radiating jaw, neck or arm pain, lightheadedness, orthopnea - Respiratory Respiratory: Absent: cough, hemoptysis, dyspnea on exertion, wheezing, snoring, change in phlegm color - Gastrointestinal Gastrointestinal: Present: nausea. Absent: abdominal pain, cramping, dysphagia , early satiety, melena, vomiting, jaundice - Genitourinary Genitourinary: Absent: dysuria, flank pain, hematuria, nocturia - Musculoskeletal Musculoskeletal: Present: arthralgias. Absent: joint swelling, muscle weakness , myalgias - Neurological Neurological: Present: abnormal gait (Due to recent left knee meniscus tear; status post left knee arthroscopy). Absent: confusion, dizziness, frequent falls, numbness, syncope, tremor(s) - Psychiatric Psychiatric: Absent: anxiety, depression - Endocrine Endocrine: Absent: cold intolerance, heat intolerance - Hematologic/Lymphatic Hematologic/Lymphatic: Absent: easy bleeding, easy bruising Medical,Surgical,& Family Hx - Medical History Cardio: History of: CHF, Hypertension (medication), Cardiovascular Problems ( enlarge heart) No history of: Cardiac Dysrhythmia, ND, Pacemaker, PVD, Valvular Heart Disease Neurology: History of: Peripheral Neuropathy (medication), Vertigo (medication as needed) No history of: Seizures HEENT: History of: Eye Problem (glasses) Comment Only: HEENT Problems (SINUS SURGERY TO BIOSPY SINUS GROWTH) Endocrine: History of: Dyslipidemia No history of: Diabetes Mellitus (IDDM), Diabetes Mellitus (NIDDM) Respiratory: History of: Bronchitis, Pneumonia, Respiratory Problems ( bronchospasm) Gastrointestinal: History of: GERD (medication), Pancreatitis (3 years ago) No history of: Gastrointestinal Bleed - Surgical History Cardiac Surgeries: Sugical HX of: Cardiac Catheterization (2013) Patient Denies: Carotid Endarterectomy, Internal Defibrillator Abdominal Surgeries: Surgical HX of: Abdominal Surgery, EGD Orthopedic Surgeries: Surgical HX of;: Orthopedic Surgery (Left knee arthroscopy 01/22/2017) Comment Only: Total Knee Replacement (having left knee scope done january 22 2017) - Family History Family History: Reports;: Family Diabetes (brothers), Family Heart Disease ( BROTHER HEART MURMUR, MOM), Family Hypertension (brothers sister) Comment Only: Family Stroke (DAD) - Social History Smoking Status: Never smoker Frequency of Alcohol Use: None Type of Drug Use: None Marital Status: Lives With:: Spouse Functional capacity: independent ambulation Physical Examination Vital Signs Temp Pulse Resp BP Pulse Ox 97.3 F L 86 22 168/111 98 01/24/17 00:03 01/24/17 00:03 01/24/17 00:03 01/24/17 00:03 01/24/17 00:03 General: Present: No Apparent Distress, Other (Obese) HEENT: Present: PERRL, Mucus Membranes Moist. Absent: Jaundice, Pallor Neck: Present: Supple Neck, Midline Trachea, No JVD/HJR, No Bruit Cardiac: Present: Reg Rate and Rhythm, Tachycardia. Absent: Audible Murmur, Bradycardia Lungs: Present: Clear Ascult./Percussion, No Wheeze, Rales, Rhonchi. Absent: Oxygen Neuro: Present: Grossly Intact. Absent: Numbness, Tingling, Resting Tremor, Essential Tremor Abdomen: Present: Soft, Active Bowel Sounds Skin: Present: Clear. Absent: Rash, Suspicious Lesions Extremities: Present: No Clubbing, No Cyanosis, Edema (Mild edema to left knee and proximal to the left knee), Capillary Refill (Normal) Result/EKG - Labs CBC & BMP: 01/28/17 05:46 01/28/17 05:46 Lab Results: I have reviewed the past 24 hour labs Labs: Laboratory Results - last 24 hr 01/28/17 01/28/17 01/29/17 13:19 17:43 12:06 Total Creatine Kinase 184 190 CK-MB (CK-2) 1.4 1.3 Troponin I < 0.015 < 0.015 Free T4 0.97 TSH 3rd Generation 03/16/17 12:06 Total Creatine Kinase CK-MB (CK-2) Troponin I Free T4 TSH 3rd Generation 2.980 - Diagnostic Findings Procedure: Chest x-ray: image reviewed by me, report reviewed by me - EKG EKG results: interpreted by me EKG shows: tachycardia (Sinus tachycardia with pulse rate no greater than 104 bpm) Specialty Discharge - Follow Up or Referrals Follow up with: Jasvir Knutson Jr., MD [Physician] - 02/18/17 8:15 am I, Alessandro Garay MD, personally performed the services described in this documentation, ascribed by Leora Mohan RN in my presence, and it is both accurate and complete [id number] .
[2017-01-29] MEDS ORDERED: WARFARIN 5 MG TABLET ONE (18:35)
[2017-01-29] MEDS: WARFARIN 10 MG TABLET PO SCH (18:39)
--- NOTE | 2017-01-29 21:32 | ECHO Report ---
Thad Wheeler Exam Date: 01/29/2017 12:59 Referring Physician: Technologist: Vannessa Giron RDCS Age: 51 Ht (in): Wt (lb): Gender: M Exam Location: [facility] Echo Indications: Chest pain, unspecified, Acute respiratory failure with hypoxia, Asthma, Right sided pulmonary embolus BP: / HR: Rhythm: Sinus Technical Quality: Very technically difficult study IMPRESSIONS Very technically difficult study. Left ventricular ejection fraction is estimated at 40%. Trace to mild aortic valve regurgitation. MEASUREMENTS (Male / Female) Normal Values 2D ECHO LV Diastolic Diameter PLAX 3.5 cm 4.2 - 5.9 / 3.9 - 5.3 cm LV Systolic Diameter PLAX 3.5 cm LV Fractional Shortening PLAX -1.4 % IVS Diastolic Thickness 0.9 cm 0.6 - 1.0 / 0.6 - 0.9 cm LVPW Diastolic Thickness 0.9 cm 0.6 - 1.0 / 0.6 - 0.9 cm RV Internal Dim ED PLAX 2.5 cm Aortic Root Diameter 3.2 cm LA Systolic Diameter LX 3.3 cm 3.0 - 4.0 / 2.7 - 3.8 cm FINDINGS Left Ventricle Normal left ventricular cavity size. Normal left ventricular wall thickness. Left ventricular ejection fraction is estimated at 40%. Right Ventricle The right ventricle is normal in size and function. Right Atrium The right atrium is normal in size. Left Atrium The left atrium is normal in size. Mitral Valve Thickened mitral valve. No mitral valve regurgitation. Aortic Valve The aortic valve is trileaflet and has normal motion. Trace to mild aortic valve regurgitation. Tricuspid Valve Morphologically normal tricuspid valve without significant stenosis or regurgitation. Pulmonary artery systolic pressure is normal. Pulmonic Valve Morphologically normal pulmonic valve without significant stenosis. There is no pulmonic regurgitation. Pericardium Normal pericardium without effusion. Aorta Normal ascending aorta dimension. Alessandro Garay (Electronically Signed) Final Date: 29 January 2017 21:30
[2017-01-30] MEDS: ALBUTEROL 2.5 MG/3 ML NEB RESP TX SCH (08:54)
[2017-01-30] MEDS: IPRATROPIUM 500 MCG/2.5 ML NEB RESP TX SCH ×2 (08:54→11:23)
[2017-01-30] MEDS: METOPROLOL SUCCINATE XL 50 MG TABLET PO SCH (09:27)
[2017-01-30] MEDS: hydrALAZINE 25 MG TABLET PO SCH (09:27)
[2017-01-30] MEDS: LOSARTAN 50 MG TABLET PO SCH (09:27)
[2017-01-30] MEDS: ASPIRIN EC 81 MG TABLET PO SCH (09:27)
[2017-01-30] MEDS: THEOPHYLLINE ER 300 MG TABLET PO SCH (09:27)
[2017-01-30] MEDS: ISOSORBIDE MONONITRATE 30 MG TABLET PO SCH (09:28)
[2017-01-30] MEDS: MONTELUKAST 10 MG TABLET PO SCH (09:28)
[2017-01-30] MEDS: GABAPENTIN 300 MG CAPSULE PO SCH (09:28)
[2017-01-30] MEDS: amLODIPine 10 MG TABLET PO SCH (09:28)
[2017-01-30] MEDS: PANTOPRAZOLE 40 MG TABLET PO SCH (09:28)
[2017-01-30] MEDS: MOMETASONE/FORMOTEROL 200-5 INHALER 8.8 GM INH SCH (09:30)
[2017-01-30] MEDS: FLUTICASONE 50 MCG NASAL SPRAY 16 GM BOTTLE BOTH NARES SCH (09:31)
[2017-01-30 10:59] LABS: INR 2.1
[2017-01-30 11:00] LABS: PT Patient Result 23.6 SECS
--- NOTE | 2017-01-30 11:50 | Discharge Summary ---
<Marty Cassidy - Last Filed: 01/30/17 11:52> Hospital Course - Hospital Course Hospital Course: This patient is a 51 year old [place] male who presented to the ER on 2016 with a pulmonary embolus s/p left knee arthroscopy. Patient was started on PE protocol with lovenox and warfarin and admitted to the telemetry unit. His hospital course was relatively uncomplicated. Venous doppler revealed no evidence of DVT. We continued to monitor his INR which had been sub-therapeutic 1.8. We consulted orthopedics to follow s/p arthroscopy and brought cardiology on board after the patient developed left-sided chest pain. Troponins, however, were negative and the EKG revealed sinus rhythm. Cardiology evaluated the patient and has cleared him for discharge. Patient's INR today is 2.1, and he has reached maximum benefit from hospitalization. He will be discharged home today with a new prescription for Eliquis. - Time spent with patient Time with patient DS: Less than 30 minutes Time spent discussing smoking cessation with patient: 3 to 10 minutes Specialty Discharge - Follow Up or Referrals Follow up with: Jasvir Daley Jr., MD [Physician] - 02/18/17 8:15 am Discharge Plan - Discharge Data Disposition: Disch To Home/Self Care - Discharge Medications New Apixaban [Eliquis] 5 mg PO BID #60 tablet Apixaban [Eliquis] 10 mg PO BID #28 tablet Ipratropium Neb [Atrovent Neb] 500 mcg RESP TX RT QID Pantoprazole Tab [Protonix Tab] 40 mg PO DAILY tablet hydrALAZINE TAB [Apresoline Tab] 25 mg PO DAILY tablet amLODIPine [Norvasc] 10 mg PO DAILY #30 tablet Continue Losartan [Cozaar] 100 mg PO DAILY Isosorbide Mononitrate [Imdur] 30 mg PO DAILY Gabapentin 300 mg PO Q8HR Aspirin [Ecotrin] 81 mg PO DAILY Albuterol Sulfate [Albuterol Inhaler] 2 puff INH BID Theophylline ER Tab 300 mg PO DAILY Meclizine [Antivert] 25 mg PO QID PRN #20 tablet PRN Reason: Dizziness Mometasone/Formoterol 200-5 [[place] 200-5] 2 puff INH BID HYDROcodone/ACETAMIN 5-325 [[place] 5-325] 2 tablet PO Q4H PRN #20 tablet PRN Reason: Pain Moderate (4-7) Fluticasone Propionate [Flonase Allergy Relief] 1 spray BOTH NARES DAILY Metoprolol Tartrate Tab [Lopressor Tab] 50 mg PO BID Montelukast Tab [Singulair Tab] 10 mg PO DAILY Omeprazole 20 mg PO BID Albuterol/Ipratropium Neb [Duoneb] 3 ml RESP TX RT QID - Follow Up or Referral Follow Up: Jasvir Daley Jr., MD [Physician] - 02/18/17 8:15 am - Forms/Instructions Instructions: Apixaban (By mouth), Pulmonary Embolism (DC), Hypertension (DC), Noncardiac Chest Pain (DC) Exam - Constitutional Vitals: Period Temp Pulse Resp BP Sys/Martini Pulse Ox Last 24 Hr 97.8 F-98.7 F 88-130 17-20 126-156/80-93 92-99 Discharge Results Labs on day of discharge: Labs from last 24 hours 01/30/17 01/29/17 01/29/17 10:26 12:06 12:06 INR 2.1 PT Patient/Control Mix 23.6 Free T4 0.97 TSH 3rd Generation 2.980 DS: Provider Date of admission: 01/24/17 03:08 Primary care physician: Jose Ricardo MD Attending physician on admission: Braydon Warren MD Consults: 01/24/17 10:57 Consult to Physician [CONS] Routine Comment: POD #2 left knee arthroscopy Consulting Provider: Jasvir Daley Jr. Consult to Specialist Group: Orthopedic Person Notified: Dr Benjamin Date Notified: 01/24/17 Time Notified: 11:45 Consult Notification Comment: SPOKE WITH PAGE AT [address] DALEY 01/24/17 10:59 Consult to Physical Therapy [CONS] Routine Reason for Physical Therapy: Other Start Therapy: Today Consult Comment: POD#2 left knee arthroscopy 01/29/17 12:17 Consult to Physician [CONS] Routine Comment: Consulting Provider: Cardiology - [facility] Consult to Specialist Group: Cardiology Person Notified: ZORAIDA Date Notified: 01/29/17 Time Notified: 12:25 Discharging clinician: Marty PAYNE Expected date of discharge: 01/30/17 <Magi Myers - Last Filed: 01/30/17 12:24> Hospital Course - Time spent with patient Time with patient DS: Greater than 30 minutes (time spent on this discharge was 38 minutes.) Diagnosis - Discharge Diagnosis (1) Chest pain Status: Acute (2) Pulmonary embolus Status: Acute (3) Hypertension Status: Chronic (4) Dyslipidemia Status: Chronic (5) Nonischemic cardiomyopathy Status: Chronic (6) Chronic kidney disease (CKD) Status: Chronic Discharge Plan - Discharge Data Condition at Discharge: Stable Discharge Diet: advance to your usual diet Activity: resume usual activities as tolerated, as per physical therapy Hygiene: no restrictions Weight Bearing at Discharge: full weight bearing Contact your physician if you experience:: Shortness of breath, Bleeding, pain uncontrolled by pain medications Exam - Constitutional General appearance: no acute distress, morbidly obese - Head Head exam: Present: normal inspection, normocephalic, atraumatic - Respiratory Respiratory exam: Present: clear to auscultation bilaterally - Cardiovascular Cardiovascular exam: Present: regular rate and rhythm - GI/Abdominal GI/Abdominal exam: Present: normal bowel sounds, soft - Extremities Exam Extremities exam: Absent: edema - Neurological Exam Neurological exam: Present: alert, oriented X3 - Psychiatric Psychiatric exam: Present: normal affect, normal mood - Skin Skin exam: Present: normal color, warm, dry Discharge Results - Imaging and Cardiology Procedure: CT - chest: image reviewed by me, report reviewed by me
[2017-01-30] MEDS: ENOXAPARIN 100 MG/ML SYRINGE SUBCUT SCH (12:09)
[2017-01-30 12:11] VITALS: BP 136/80
== END 2017-01-30 14:20 | disposition home or self-care (01) | DRG 176 ==
LOC: EDBD → EDUNIT# → N.ED 00:03 → N.EDINP 03:08 → SUATTDRO 03:08 → N.ICU 03:31 → N.TELEN 03:37
PROVIDERS: ADMIT Internal Medicine; ATTEND Family Medicine

== ENCOUNTER 2017-05-05 12:38 | Observation (INO) ==
[2017-05-05] MEDS ORDERED: ONDANSETRON 4 MG/2 ML VIAL IV PRN (13:50)
[2017-05-05] MEDS ORDERED: ENOXAPARIN 100 MG/ML SYRINGE SUBCUT STA (13:50)
[2017-05-05] MEDS ORDERED: ASPIRIN 325 MG TABLET PO STA (13:50)
[2017-05-05] MEDS ORDERED: MORPHINE 2 MG/1 ML SYRINGE IV PRN ×2 (13:50→18:07)
--- NOTE | 2017-05-05 14:01 | Emergency Department Note ---
Jaylin Sanchez Mantricia, am scribing for, and in the presence of, Jasvir Soriano MD 13:57. Christie Sanchez James D, MD, personally performed the services described in this documentation, ascribed by Chelsi Mosqueda in my presence, and it is both accurate and complete . Arrival - Arrival Chief Complaint: Chest Pain Stated Complaint: chest pain ED Nursing Triage Note: pt has pain in lt upper chest and lt shoulder s/p PT today. pain is worse worse with touching chest and shoudler. family states when pt's name was called for PT he just got weak Mode of Arrival: Wheelchair Limitations: No Limitations Source: Patient, Family - History of Present Illness HPI Narrative: Pt is a 51 y/o black male arriving to ED with c/o substernal chest pain that onset today. Pt was at physical therapy and as he he was about to start, he became weak. The chest pain is associated with headache and left shoulder pain. Pt had a heart catherization in [address] Cortez. He has a PMHx of HTN, cardiomegaly, vertigo, bronchitis, pancreatitis, and GERD. No other complaints were reported to ED. Onset (ago): hour(s) Consistency: constant Allergies/Adverse Reactions: Allergies Allergy/AdvReac Type Severity Reaction Status Date / Time Eggplant Allergy Intermediate Swelling Verified 03/15/15 11:58 of Lip/Tongue/Throat Liver Allergy Intermediate Swelling Verified 03/15/15 11:58 of Lip/Tongue/Throat Home Medications: Home Medications Medication Instructions Recorded Confirmed Type Albuterol Sulfate [Albuterol 2 puff INH BID 03/15/15 05/05/17 History Inhaler] Aspirin [Ecotrin] 81 mg PO DAILY 03/15/15 05/05/17 History Gabapentin 300 mg PO Q8HR 03/15/15 05/05/17 History Losartan [Cozaar] 100 mg PO DAILY 03/15/15 05/05/17 History Theophylline ER Tab 300 mg PO BID 03/15/15 05/05/17 History Mometasone/Formoterol 200-5 2 puff INH BID 01/22/17 05/05/17 History [Dulera 200-5] Montelukast Tab [Singulair Tab] 10 mg PO DAILY 01/22/17 05/05/17 History Albuterol/Ipratropium Neb [Duoneb] 3 ml RESP TX RT QID 01/24/17 05/05/17 History Fluticasone Propionate [Flonase 1 spray BOTH NARES DAILY 01/24/17 05/05/17 History Allergy Relief] Omeprazole 20 mg PO BID 01/24/17 05/05/17 History Apixaban [Eliquis] 10 mg PO BID #28 tablet 01/30/17 05/05/17 Rx amLODIPine [Norvasc] 10 mg PO DAILY #30 tablet 01/30/17 05/05/17 Rx Atorvastatin Calcium 10 mg PO DAILY 05/05/17 05/05/17 History Furosemide Tab [Lasix Tab] 40 mg PO DAILY 05/05/17 05/05/17 History Isosorbide Mononitrate [Isosorbide 30 mg PO DAILY 05/05/17 05/05/17 History Mononitrate ER] Metoprolol Tartrate Tab [Lopressor 100 mg PO BID 05/05/17 05/05/17 History Tab] hydrALAZINE TAB [Apresoline Tab] 50 mg PO TID 05/05/17 05/05/17 History Review of System - Review of System 12 point system: reviewed and no additional remarkable complaints except as stated - Review of System Cardiovascular: Present: chest pain (substernal) Gastrointestinal: Absent: abdominal pain, nausea, vomiting, diarrhea Genitourinary male: Absent: urgency, frequency Musculoskeletal: Present: other (left shoulder pain). Absent: arm pain, back pain, leg pain, neck pain Skin: Absent: rash, lesions Neurological: Present: headache. Absent: weakness Medical,Surgical,& Family Hx - Medical History Cardio: History of: Hypertension (medication), Cardiovascular Problems ( cardiomegaly) No history of: Cardiac Dysrhythmia, [place], Pacemaker, PVD, Valvular Heart Disease Neurology: History of: Peripheral Neuropathy (medication), Vertigo (medication as needed) No history of: Seizures HEENT: History of: Eye Problem (glasses) Endocrine: No history of: Diabetes Mellitus (IDDM), Diabetes Mellitus (NIDDM) Respiratory: History of: Bronchitis Gastrointestinal: History of: GERD (medication), Pancreatitis (3 years ago) No history of: Gastrointestinal Bleed - Surgical History Cardiac Surgeries: Sugical HX of: Cardiac Catheterization (2013) Patient Denies: Carotid Endarterectomy, Internal Defibrillator HEENT Surgeries: Patient denies: Carotid Endarterectomy Orthopedic Surgeries: Surgical HX of;: Orthopedic Surgery (Left knee arthroscopy 01/22/2017) Comment Only: Total Knee Replacement (having left knee scope done january 22 2017) - Family History Family History: Reports;: Family Diabetes (brothers), Family Hypertension ( brothers sister) - Social History Smoking Status: Never smoker Frequency of Alcohol Use: None Type of Drug Use: None Exam Physical Examination: GENERAL: This is an obese black male in mild distress. VITAL SIGNS: HEENT: Head is normocephalic and atraumatic. Pupils are equally round and reactive to light. Extraocular movement are intact. Oropharynx is benign with moist mucous membranes. NECK: Neck is soft and supple without tenderness. There are no masses. There is no lymphadenopathy. LUNGS: Lungs are clear to auscultation bilaterally. Chest rises symmetrically. There is left anterior chest wall tenderness. CV: Heart is regular rate and rhythm without murmurs, rubs, or gallops. ABDOMEN: Abdomen is soft, non-tender to palpation. There are no abnormal masses palpated. There is no organomegaly. Bowel sounds are present and active. SKIN: Skin is warm and dry. No rash. EXTREMITIES: Patient has full range of motion without tenderness. There is no pedal edema. NEUROLOGIC: Awake, alert, and oriented x4. Cranial nerves II through XII are grossly intact. There are no motorsensory deficits. PSYCHIATRIC: Normal affect. Normal mood. Vital Signs: Vital Signs Temperature 97.4 F L 05/05/17 12:47 Pulse Rate 90 05/05/17 12:47 Respiratory Rate 18 05/05/17 12:47 Blood Pressure 113/65 05/05/17 12:47 O2 Sat by Pulse Oximetry 95 05/05/17 12:47 Course - Consultations Consultation #1: Discussed with hospitalist. Patient will be admitted to their service. Time: 15:04 Results - Labs CBC & BMP: 05/05/17 14:16 Lab Results: I have reviewed the patients labs Labs: Laboratory Tests 05/05/17 14:16 Troponin I < 0.015 - EKG EKG results: interpreted by ERMD - Impressions EKG: Sinus rhythm with occasional PVCs, rate 96, nonspecific ST-T wave changes. - Diagnostic Findings Procedure: Chest x-ray: image reviewed by me (Mild elevation of left hemidiaphragm, no pleural effusions, no cardiomegaly.), CT: image reviewed by me (CT head: No acute intracranial lesion or hemorrhage.) Disposition Clinical Impression: Chest pain, Cardiomyopathy, Headache Case discussed with: patient Disposition: Still a Patient Condition: Stable
--- NOTE | 2017-05-05 14:06 | CT Report ---
CT brain Indication: Headache Comparison: 01 October 2015 Technique: Axial CT imaging of the brain is performed without contrast with 3 mm increments. Findings: No evidence of hemorrhage, mass mass effect midline shift or acute infarct seen. The brain parenchyma attenuation and differentiation appears within normal limits. The ventricles and cisterns are normal in caliber. No cranial or skull base abnormality is identified. Impression: No evidence of abnormality demonstrated. This CT exam was performed using one or more the following dose reduction techniques: Automated exposure control, adjustment of the MA and/or KV according to patient size, or use of iterative reconstruction technique. PROCEDURE INTERPRETED AT [facility] DEPARTMENT OF RADIOLOGY Final Report Signed by: Dr. Tyler Bunn
--- NOTE | 2017-05-05 14:12 | XRay Report ---
XR chest 1V portable Indication: Chest pain Comparison: 29 January 2017 Findings: The heart and mediastinum are normal in size and configuration. The pulmonary vascularity is normal in caliber. No lung infiltrates, effusions, pneumothorax or other abnormality is demonstrated. Impression: Normal chest x-ray PROCEDURE INTERPRETED AT [facility] DEPARTMENT OF RADIOLOGY Final Report Signed by: Dr. Tyler Bunn
[2017-05-05 14:32] LABS: Basophils % 0.3 % (0.0-0.8); Eosinophils # 0.1 10*3/uL (0.0-0.87); Eosinophils % 1.3 % (0.00-10.9); Hematocrit 40.2 VOL% (42.0-52.0); Hemoglobin 14.4 GM/DL (14.0-18.0); Immature Granulocytes % 0.1 %; Immature Granulocytes Absolute 0.01 #; Lymphocytes # 1.8 10*3/uL (1.4-4.0); Lymphocytes % 25.4 % (21.2-54.2); Mean Corpuscular HGB Conc 35.8 GM/DL (32-36); Mean Corpuscular Hemoglobin 31 PG (27-34); Mean Corpuscular Volume 86.1 FL (87-102); Mean Platelet Volume 10.9 FL (9.6-12.0); Monocytes % 14.2 % (1.7-12.7); Neutrophils % 58.7 % (38.7-73.9); Platelet Count 223 T/CUMM (130-400); Red Blood Count 4.67 MC/CUMM (3.8-5.5); Red Cell Distribution Width 13.4 % (9.3-17.3); White Blood Count 6.9 T/CUMM (4-12)
[2017-05-05 14:42] LABS: PT Patient Result 10.7 SECS
[2017-05-05] MEDS ORDERED: ONDANSETRON 4 MG/2 ML VIAL ONE (14:47)
[2017-05-05] MEDS ORDERED: MORPHINE 2 MG/1 ML SYRINGE ONE (14:48)
[2017-05-05] MEDS ORDERED: ASPIRIN 325 MG TABLET ONE (14:48)
[2017-05-05] MEDS ORDERED: ENOXAPARIN 120 MG/0.8 ML SYRINGE SUBCUT ONE (14:57)
[2017-05-05 15:01] LABS: Apearance,Urine CLEAR (Clear); Bilirubin,Urine Negative (Negative); Blood, Urine Negative (Negative); Glucose,Urine (UA) Negative (Negative); Ketones,Urine Negative (Negative); Mucus,Urine Occasional /LPF (Occasional); Nitrite,Urine Negative (Negative); Protein,Urine Negative; RBC,Urine <1 /HPF (0-4); Urine Color Yellow (Yellow); Urine Urobilinogen < 2.0 EU/DL (0.2-1.0); WBC,Urine <1 /HPF (0-6)
[2017-05-05 15:10] LABS: Albumin 4.1 G/DL (3.4-5.0); Bilirubin,Total 0.4 MG/DL (0.2-1.0); Magnesium 2.3 MG/DL (1.8-2.4); Potassium 3.6 MMOL/L (3.5-5.1); Total Protein 7.3 G/DL (6.4-8.3)
[2017-05-05] MEDS ORDERED: ZALEPLON 5 MG CAPSULE PO PRN (18:07)
[2017-05-05] MEDS ORDERED: INSULIN LISPRO 100 UNIT/ML SUBCUT ONE (18:07)
[2017-05-05] MEDS ORDERED: MAGNESIUM SULF RIDER 4 GM in PREMIX 1 EACH IV PRN (18:07)
[2017-05-05] MEDS ORDERED: POTASSIUM CHLORIDE 20 MEQ TABLET PO PRN ×2 (18:07)
[2017-05-05] MEDS ORDERED: MAGNESIUM SULF RIDER 2 GM in PREMIX 1 EACH IV PRN (18:07)
[2017-05-05] MEDS ORDERED: DOCUSATE SODIUM 100 MG CAPSULE PO PRN (18:07)
[2017-05-05] MEDS ORDERED: LACTULOSE 20 GM/30 ML UDCUP PO PRN (18:07)
--- NOTE | 2017-05-05 18:37 | Hospitalist History & Physical ---
<Marty Cassidy - Last Filed: 05/05/17 18:22> Assessment and Plan (1) Chest pain Status: Acute Assessment and plan: Patient will be admitted for observation further evaluation. His serial troponins. Repeat blood work in a.m. Consult cardiology for possible stress test in a.m. Echocardiogram Current Visit: No (2) Hypertension Status: Chronic Assessment and plan: Continue home medications. Current Visit: No (3) Nonischemic cardiomyopathy Status: Chronic Assessment and plan: Echocardiogram is being ordered. Consult cardiology. Current Visit: No History of Present Illness Chief complaint: chest pain History of present illness: Mr. Wheeler is a 51 year old [place] male with a past medical history significant for TIA, cardiomyopathy, hypertension, vertigo, PE, GERD, pancreatitis who presents to the ED today with complaints of chest pain which onset today. Patient reports that he was at a doctor's office when he began to become short of breath, diaphoretic, and experienced substernal chest pain which radiated to his back, left shoulder and arm. Patient notes that he just left physical therapy earlier and was headed to an appointment with his orthopedic surgeon. He reports that the pain has since subsided. Chest pain is reproducible to palpation. He reports associated pain on inspiration. He denies headache, nausea/vomiting, palpitations or near syncope. Lab work on admission revealed WBC 6.9, hemoglobin 14.4, hematocrit 40 point, sodium 143, potassium 3.6, BUN 17 , creatinine 1.4, glucose 117. Troponin was negative on admission. Urinalysis , his CT, chest x-ray negative. Of note, the patient did have a left heart cath in [address] Cortez which was negative. 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 The patient will be admitted to hospital medicine service for observation and further evaluation. Case been discussed with Dr. Montelongo. Patient is a full code. Home meds have been reviewed and reconciled. Home Medications Medication Instructions Recorded Confirmed Type Aspirin [Ecotrin] 81 mg PO DAILY 03/15/15 05/05/17 History Gabapentin 300 mg PO Q8HR 03/15/15 05/05/17 History Losartan [Cozaar] 100 mg PO DAILY 03/15/15 05/05/17 History Theophylline ER Tab 300 mg PO BID 03/15/15 05/05/17 History Mometasone/Formoterol 200-5 2 puff INH BID 01/22/17 05/05/17 History [Dulera 200-5] Montelukast Tab [Singulair Tab] 10 mg PO DAILY 01/22/17 05/05/17 History Albuterol/Ipratropium Neb [Duoneb] 3 ml RESP TX RT QID 01/24/17 05/05/17 History Fluticasone Propionate [Flonase 1 spray BOTH NARES DAILY 01/24/17 05/05/17 History Allergy Relief] Omeprazole 20 mg PO BID 01/24/17 05/05/17 History Apixaban [Eliquis] 10 mg PO BID #28 tablet 01/30/17 05/05/17 Rx amLODIPine [Norvasc] 10 mg PO DAILY #30 tablet 01/30/17 05/05/17 Rx Albuterol Inhaler [Proventil 2 puff INH BID 05/05/17 05/05/17 History Inhaler] Atorvastatin Calcium 20 mg PO DAILY 05/05/17 05/05/17 History Ergocalciferol [Drisdol] 50,000 unit PO Q7DAY 05/05/17 05/05/17 History Furosemide Tab [Lasix Tab] 40 mg PO DAILY 05/05/17 05/05/17 History Isosorbide Mononitrate [Isosorbide 30 mg PO DAILY 05/05/17 05/05/17 History Mononitrate ER] Metoprolol Tartrate Tab [Lopressor 100 mg PO BID 05/05/17 05/05/17 History Tab] hydrALAZINE TAB [Apresoline Tab] 50 mg PO TID 05/05/17 05/05/17 History Allergies Allergy/AdvReac Type Severity Reaction Status Date / Time Eggplant Allergy Intermediate Swelling Verified 03/15/15 11:58 of Lip/Tongue/Throat Liver Allergy Intermediate Swelling Verified 03/15/15 11:58 of Lip/Tongue/Throat Medical,Surgical,& Family Hx - Medical History Cardio: History of: Hypertension (medication), Cardiovascular Problems ( cardiomegaly) No history of: Cardiac Dysrhythmia, [place], Pacemaker, PVD, Valvular Heart Disease Neurology: History of: Peripheral Neuropathy (medication), Vertigo (medication as needed) No history of: Seizures HEENT: History of: Eye Problem (glasses) Endocrine: No history of: Diabetes Mellitus (IDDM), Diabetes Mellitus (NIDDM) Respiratory: History of: Bronchitis Gastrointestinal: History of: GERD (medication), Pancreatitis (3 years ago) No history of: Gastrointestinal Bleed - Surgical History Cardiac Surgeries: Sugical HX of: Cardiac Catheterization (2013) Patient Denies: Carotid Endarterectomy, Internal Defibrillator HEENT Surgeries: Patient denies: Carotid Endarterectomy Orthopedic Surgeries: Surgical HX of;: Orthopedic Surgery (Left knee arthroscopy 01/22/2017) Comment Only: Total Knee Replacement (having left knee scope done january 22 2017) - Family History Family History: Reports;: Family Diabetes (brothers), Family Hypertension ( brothers sister) - Social History Smoking Status: Never smoker Frequency of Alcohol Use: None Type of Drug Use: None Marital Status: Lives With:: Spouse Functional capacity: independent ambulation - Constitutional Constitutional: Absent: fever(s), headache(s), weakness - EENT Nose, mouth and throat: Absent: neck mass, vertigo - Cardiovascular Cardiovascular: Present: chest pain at rest, diaphoresis, dyspnea, radiating jaw , neck or arm pain - Respiratory Respiratory: Present: dyspnea, snoring. Absent: cough, wheezing - Gastrointestinal Gastrointestinal: Absent: abdominal pain, change in bowel habits, constipation, nausea, vomiting - Genitourinary Genitourinary: Absent: dysuria, hematuria - Musculoskeletal Musculoskeletal: Absent: arthralgias, back pain - Neurological Neurological: Absent: abnormal gait, abnormal speech, dizziness - Psychiatric Psychiatric: Absent: anxiety, depression - Endocrine Endocrine: Absent: cold intolerance, heat intolerance - Hematologic/Lymphatic Hematologic/Lymphatic: Absent: easy bleeding, easy bruising Exam - Constitutional Vitals: Period Temp Pulse Resp BP Sys/Martini Pulse Ox Last 24 Hr 97.3 F-97.4 F 76-90 15-23 106-131/65-78 95-100 Exam: General appearance: overweight, mild distress - Head Head exam: Present: normocephalic, atraumatic - Eye Eye exam: Present: EOMI. Absent: conjunctival injection, nystagmus Pupils: Present: KATERIN, normal accommodation - ENT ENT exam: Present: normal exam, normal external ear exam - Neck Neck exam: Present: normal inspection. Absent: lymphadenopathy, tenderness, thyromegaly - Respiratory Respiratory exam: Present: clear to auscultation bilaterally. Absent: rales, rhonchi, wheezes - Cardiovascular Cardiovascular exam: Present: regular rate, irregular rhythm. Absent: carotid bruit, gallop, rubs - GI/Abdominal GI/Abdominal exam: Present: normal bowel sounds. Absent: ascites, distended, mass - Extremities Exam Extremities exam: Present: normal inspection, normal capillary refill, reduced strength in left extremities. Absent: edema - Back Exam Back exam: Absent: CVA tenderness (L), CVA tenderness (R) - Neurological Exam Neurological exam: Present: alert, oriented X3 - Psychiatric Psychiatric exam: Present: normal affect, normal mood - Skin Skin exam: Present: normal color, warm, dry Results - Labs CBC & BMP: 05/05/17 14:16 05/05/17 14:16 <Corrina Montelongo - Last Filed: 05/05/17 19:04> History of Present Illness History of present illness: Mr. Wheeler is a 51 year old male with a history of systolic CHF, PE, GERD and TIA who presented to the hospital with left sided chest pain and SOB, and syncope. He was at his orthopedic's doctor's office and was leaning up against the wall after walking when he became acutely SOB and lightheaded. He states he is unsure how long it was out but he slipped into a chair. he denies any injuries. He states he had 8/10 left sided sharp, constant chest pain that radiated down his left arm. He said it turned to a dull ache and lasted approximately 20 minutes. It is reproducible and worsens with movement. Not associated with eating or position changes. It was associates with lightheadedness, dizziness, palpitations. No nausea or vomiting. He states he had a headache over his right eye. No vision changes. He states ASA helped. His doctor sent him by ambulance to ER for further evaluation and treatment. A 10- point review of systems was reviewed with pt. He also reports left leg swells at time and he finds it hard to walk in it. It may be associated with numbness at times as well. PMH: PE, ?AIDA, GERD, right nasal cyst, CKD stage 3, TIA, chronic systolic CHF EF 40%, COPD, asbestosis exposure, GERD, fatty liver. PSH: left arthroscopic procedure MEDS: reviewed ALL: NKDA- allergic to liver and eggplant FH: mother- "heart problems"; Father- unknown SH: denies tobacco, alcohol or illicit drugs. . 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 Slight edema noted Soft, NT, ND, +BS, obese abdomen Warm no c/c/ trace LLE edema A/P: as noted in PA note but will also order LLE venous duplex, CT cervical spine and MRI left shoulder to R/O radiculopathy/ rotator cuff tear. If negative for tear, consult PT/OT. Cont neurontin. TSH, vitamin B12, Vitamin D level Check orthostatics. Needs outpatient sleep study which is already scheduled for at [facility] 2 days r/o AIDA. Cards to see. Watch I and O's closely to prevent fluid overload. Resume home meds that are clinically appropriate. D/W pt and all questions answered. Exam - Constitutional Vitals: Period Temp Pulse Resp BP Sys/Martini Pulse Ox Last 24 Hr 97.3 F-97.4 F 76-90 15-23 106-131/65-78 95-100 Results - Labs CBC & BMP: 05/05/17 14:16 05/05/17 14:16
--- NOTE | 2017-05-05 20:19 | CT Report ---
CT cervical spine wo con Indication: Neck pain. CT CERVICAL SPINE WITHOUT CONTRAST DLP: 481 mGy*cm. One or more of the following dose reduction techniques was used: Automated exposure control, adjustment of the mA and/or kV according the patient size, or use of iterative reconstruction techniques. Comparison: None. No prior plain films. No prior MRI. Technique: Axial noncontrast CT images of the cervical spine were obtained. Coronal and sagittal reconstructions were provided. Findings: Endplate osteophytes C5-6 and C6-7 are present with mild disc space narrowing. Other disc heights are maintained. No fracture or subluxation. Normal facet joint alignment. No paraspinous hematoma. No bony encroachment on the canal. Minimal left C6-7 intervertebral foraminal stenosis from uncovertebral joint hypertrophy. No paraspinous hematoma. Pulmonary apices are clear. Impression: 1. Imaging modality of choice is plain film and MRI. 2. Mild degenerative disc disease C5-6 and C6-7. Mild left C6-7 foraminal stenosis. PROCEDURE INTERPRETED AT [facility] DEPARTMENT OF RADIOLOGY Final Report Signed by: Cal Navarro M.D.
[2017-05-05] MEDS: MOMETASONE/FORMOTEROL 200-5 INHALER 8.8 GM INH SCH (20:32)
[2017-05-05] MEDS: METOPROLOL TARTRATE 100 MG TABLET PO SCH (20:33)
[2017-05-05] MEDS: PANTOPRAZOLE 40 MG TABLET PO SCH (20:33)
[2017-05-05] MEDS: APIXABAN 5 MG TABLET PO SCH (20:33)
[2017-05-05] MEDS: THEOPHYLLINE ER 300 MG TABLET PO SCH (20:33)
--- NOTE | 2017-05-05 20:38 | Ultrasound Report ---
US venous doppler LE LT Indication: Left leg pain and swelling. UNILATERAL (LEFT) LOWER EXTREMITY VENOUS ULTRASOUND Comparison: 01/29/2017 Findings: Graded grayscale compression, color Doppler and pulsed Doppler ultrasound evaluation of the venous structures performed. Normal compressibility, augmentation and color saturation is present within the left common femoral, superficial femoral, popliteal and proximal greater saphenous veins. Impression: No evidence of DVT. PROCEDURE INTERPRETED AT [facility] DEPARTMENT OF RADIOLOGY Final Report Signed by: Cal Navarro M.D.
[2017-05-05] MEDS ORDERED: DEXTROSE 50% 25 GM/50 ML VIAL IV PRN (20:40)
[2017-05-05] MEDS ORDERED: GLUCAGON 1 MG VIAL IM PRN (20:40)
[2017-05-05] MEDS: INSULIN LISPRO 100 UNIT/ML SUBCUT SCH (22:00)
[2017-05-05] MEDS: GABAPENTIN 300 MG CAPSULE PO SCH (22:01)
[2017-05-06] MEDS ORDERED: DESITIN 4OZ/NYSTATIN 15 GRAM MIXTURE PASTE TOP SCH (02:30)
[2017-05-06 05:33] LABS: Basophils % 0.6 % (0.0-0.8); Eosinophils # 0.1 10*3/uL (0.0-0.87); Eosinophils % 2.3 % (0.00-10.9); Hematocrit 39.7 VOL% (42.0-52.0); Immature Granulocytes % 0.4 %; Immature Granulocytes Absolute 0.02 #; Lymphocytes # 1.4 10*3/uL (1.4-4.0); Lymphocytes % 25.6 % (21.2-54.2); Mean Corpuscular HGB Conc 35.3 GM/DL (32-36); Mean Corpuscular Hemoglobin 31 PG (27-34); Mean Corpuscular Volume 86.9 FL (87-102); Mean Platelet Volume 11.2 FL (9.6-12.0); Monocytes # 0.6 10*3/uL (0.11-0.8); Monocytes % 10.4 % (1.7-12.7); Neutrophils # 3.2 10*3/uL (1.4-7.4); Neutrophils % 60.7 % (38.7-73.9); Platelet Count 203 T/CUMM (130-400); Red Blood Count 4.57 MC/CUMM (3.8-5.5); Red Cell Distribution Width 13.2 % (9.3-17.3); White Blood Count 5.3 T/CUMM (4-12)
--- NOTE | 2017-05-06 06:03 | EKG Report ---
Stationary ECG Study [facility] ER Test Date: 05/05/2017 12:46:02 PM Pat Name: MARIO ELIZABETH Department: Room: 290 Gender: M Search Strategist: : 1965 Requested by: Jasvir Fuentes Order Number: [id number] Reading MD: BEVERLY GOODRICH Intervals [address] Rate: 96 P: 52 MO: 164 QRS: 12 QRSD: 104 T: 58 QT: 347 QTc: 401 Interpretive Statements SINUS RHYTHM WITH OCCASIONAL VENTRICULAR PREMATURE COMPLEXES Electronically Signed On 05-06-17 16:51:28 CDT by BEVERLY GOODRICH [email or web address]
[2017-05-06 06:07] LABS: Calcium 8.2 MG/DL (8.5-10.1)
[2017-05-06 06:08] LABS: Magnesium 2.6 MG/DL (1.8-2.4); Osmolality,Calculated 291.6 MOS/KG (273-304); Potassium 3.4 MMOL/L (3.5-5.1)
[2017-05-06 06:19] LABS: 25 Hydroxy Vitamin D Total 32.7 NG/ML
[2017-05-06 06:22] LABS: Free T4 (Free Thyroxine) 0.99 NG/DL (0.76-1.46); Risk Ratio 2.86; Thyroid Stimulating Hormone 3.27 uIU/ml (0.358-3.74); VLDL CHOLESTEROL 20.4 MG/DL
--- NOTE | 2017-05-06 07:27 | Hospitalist Progress Note ---
Hospitalist: Subjective Interval history: Pt states rib and back pain persists but denies cp. He reports palpitations when he sits up. No orthostatics done last night. No fever. No cough. NPO for stress test this am. Exam - Constitutional Vitals: Period Temp Pulse Resp BP Sys/Martini Pulse Ox Last 24 Hr 97.3 F-98.0 F 75-90 15-23 98-131/55-83 95-100 Exam: A and O x 3 RRR no M CTAB nonlabored Chest wall left TTP and decreased ROM of left shoulder due to pain. Slight edema noted Soft, NT, ND, +BS, obese abdomen Warm no c/c/ trace LLE edema Results - Labs CBC & BMP: 05/06/17 05:12 05/06/17 05:12 - Impressions (1) Atypical Chest pain in a patient with known risk factors Status: Acute Assessment and plan: - His serial troponins are negative - Cardiology to see - Possible stress test in a.m. - F/U Echocardiogram - CT cervical spine and MRI left shoulder to R/O radiculopathy/ rotator cuff tear. If negative for tear, consult PT/OT. Cont neurontin. - Check Vitamin B12, Vitamin D level Current Visit: No (2) Essential Hypertension Status: Chronic Assessment and plan: Continue home medications. Current Visit: No (3) Chronic systolic CHF EF 40% Status: Chronic Assessment and plan: Echocardiogram pending. Cardiology to see. Current Visit: No (4) Left leg swelling/ pain s/p left knee arthroscopy - LLE venous duplex (5) Palpitations/ Syncope - TSH - Check orthostatics. D/W with nurse this am. - Needs outpatient sleep study which is already scheduled for at [facility] in 1 day to r/o AIDA. - Cards to see. Watch I and O's closely to prevent fluid overload. (6) History of PE - On Eliquis (7) CKD stage 3 - stable D/W pt, and nurse and all questions answered.
[2017-05-06] MEDS: INSULIN LISPRO 100 UNIT/ML SUBCUT SCH ×4 (08:19→22:14)
[2017-05-06] MEDS: GABAPENTIN 300 MG CAPSULE PO SCH ×3 (08:19→22:02)
[2017-05-06] MEDS ORDERED: PANTOPRAZOLE 40 MG TABLET PO SCH (09:00)
[2017-05-06] MEDS ORDERED: POTASSIUM CHLORIDE 20 MEQ TABLET PO ONE (10:03)
--- NOTE | 2017-05-06 10:07 | Cardiology Consult Note ---
Addendum entered and electronically signed by Lynette Fernandez NP 05/06/17 10: 11: ADDENDUM: Patient has symptoms concerning for sleep apnea including snoring, holding of breath, poor sleep quality. Next circumference greater than 44 cm. Mallampati Airway Class III. Will consult sleep medicine for evaluation, possible treatment for suspected sleep disorder. Original Note: <Lynette Fernandez - Last Filed: 05/06/17 09:17> Assessment and Plan - Time spent with patient Time spent with patient: Greater than 30 minutes (1) Dyslipidemia Status: Chronic Assessment and plan: SEE PLAN OF CARE LISTED BELOW Current Visit: Yes (2) Hypokalemia Status: Acute Assessment and plan: SEE PLAN OF CARE LISTED BELOW Current Visit: Yes (3) Dizziness Status: Acute Assessment and plan: SEE PLAN OF CARE LISTED BELOW Current Visit: Yes (4) TIA (transient ischemic attack) Status: Resolved Assessment and plan: SEE PLAN OF CARE LISTED BELOW Current Visit: Yes (5) Chest pain Status: Acute Assessment and plan: SEE PLAN OF CARE LISTED BELOW Current Visit: No (6) Hypertension Status: Chronic Assessment and plan: SEE PLAN OF CARE LISTED BELOW Current Visit: No (7) Dyslipidemia Status: Chronic Assessment and plan: SEE PLAN OF CARE LISTED BELOW Current Visit: No (8) Nonischemic cardiomyopathy Status: Chronic Assessment and plan: SEE PLAN OF CARE LISTED BELOW Current Visit: No History of Present Illness - Data of Consult Patient: known to practice within the last 3 years Consult date: 05/06/17 Requesting Physician: Corrina Montelongo - Consult Narrative Reason for consult: Chest pain History of present illness: BLIND AIDE: DR. CORTEZ Mr. Wheeler, 51ChM, routinely followed by Dr. Ashlyn Cortez. Last seen in cardiology clinic November 18, 2016. His factors include: Hypertension, dyslipidemia, obesity, sedentary lifestyle, recent TIA, prior history of noncompliance. History of nonischemic cardiomyopathy (EF 40%). Patient reports PTE February 2017 after undergoing left knee scope January 2017. Also, reports TIA February 2017. Cardiac catheterization September 30, 2013 revealed: Dilated nonischemic cardiomyopathy. Echocardiogram October 20, 2016 reveals EF 40%, diastolic dysfunction (stage I), mild LVH. Mr. Wheeler, presented to [facility] ER in transfer from [facility]. Patient reports left chest, left shoulder pain exquisitely tender to movement and to touch. Patient reports he had TIA February 2017 resulting in left-sided weakness, burning, tingling and numbness. Patient started physical therapy this week and since that time he has had exquisite pain with movement in the left upper chest area, shoulder and arm. He rates the discomfort as a 9 on a scale of 1-10. He can identify no alleviating factors. Patient is chronically short of breath with normal PFTs. He has been sedentary since November 2016 when he injured his left knee. He was using crutches prior to having surgery January 2017. He uses a cane and finds that he gets very dizzy, lightheaded with exertion. Cardiac biomarkers are negative, EKG does not reveal an acute change from prior EKGs. Patient has a long- standing history of shortness of breath with normal PFTs and CT of chest including: Beta blockers, ARB. He continues to take a lipid-lowering agent, Patient has numerous complaints however, these are noncardiac complaints. He is concerned because he has burning pain down his left arm, left arm and no weakness (though no hemiparesis noted on my exam). February 2017, patient was having chest pain with deep breathing when he was diagnosed with PTE. He has been taking Eliquis and tells me he definitely tries to remember to take this particular medication each day though he does miss occasional doses. He still has pain with deep breath however, this is much improved. Patient is on a good cardiomyopathy medication regimen. Blood pressure is well controlled. Patient was scheduled for tentative stress test, but given the fact that his chest pain is exquisitely reproducible to palpation, movement since starting physical therapy, he may benefit from treatment of chest wall pain rather than stress testing. I will further discuss with Dr. Tavares and await additional recommendations. ASSESSMENT/PLAN: 1. CHEST PAIN - reproducible to palpation, movement. Recently started physical therapy and pain has been worsening since initiation of PT. Currently taking Neurontin. Will add Ultram and Acetaminophen BID. 2. NICM - EF 40%, [facility] 2012 - no CAD. EF actually improved to 40% with medications as EF was originally 20%. 3. HYPERTENSION - adequately controlled. On 4. DYSLIPIDEMIA - continue lipid-lowering agent. At goal - LDL 56. 5. RECENT REPORTED TIA - last physical therapy to see, assess and make additional recommendations. 6. PTE, HISTORY OF - continue Eliquis. Was treated for PTE at [facility] in [place], [place]. 7. DIZZINESS - vertigo since TIA. Will ask for orthostatic vitals. 8. HYPOKALEMIA - give an additional dose of potassium this morning and recheck labs tomorrow morning CC: Corrina Montelongo MD - Home Medications and Allergies Home Medications: Home Medications Medication Instructions Recorded Confirmed Type Aspirin [Ecotrin] 81 mg PO DAILY 03/15/15 05/05/17 History Gabapentin 300 mg PO Q8HR 03/15/15 05/05/17 History Losartan [Cozaar] 100 mg PO DAILY 03/15/15 05/05/17 History Theophylline ER Tab 300 mg PO BID 03/15/15 05/05/17 History Mometasone/Formoterol 200-5 2 puff INH BID 01/22/17 05/05/17 History [Dulera 200-5] Montelukast Tab [Singulair Tab] 10 mg PO DAILY 01/22/17 05/05/17 History Albuterol/Ipratropium Neb [Duoneb] 3 ml RESP TX RT QID 01/24/17 05/05/17 History Fluticasone Propionate [Flonase 1 spray BOTH NARES DAILY 01/24/17 05/05/17 History Allergy Relief] Omeprazole 20 mg PO BID 01/24/17 05/05/17 History Apixaban [Eliquis] 10 mg PO BID #28 tablet 01/30/17 05/05/17 Rx amLODIPine [Norvasc] 10 mg PO DAILY #30 tablet 01/30/17 05/05/17 Rx Albuterol Inhaler [Proventil 2 puff INH BID 05/05/17 05/05/17 History Inhaler] Atorvastatin Calcium 20 mg PO DAILY 05/05/17 05/05/17 History Ergocalciferol [Drisdol] 50,000 unit PO Q7DAY 05/05/17 05/05/17 History Furosemide Tab [Lasix Tab] 40 mg PO DAILY 05/05/17 05/05/17 History Isosorbide Mononitrate [Isosorbide 30 mg PO DAILY 05/05/17 05/05/17 History Mononitrate ER] Metoprolol Tartrate Tab [Lopressor 100 mg PO BID 05/05/17 05/05/17 History Tab] hydrALAZINE TAB [Apresoline Tab] 50 mg PO TID 05/05/17 05/05/17 History Allergies/Adverse Reactions: Allergies Allergy/AdvReac Type Severity Reaction Status Date / Time Eggplant Allergy Intermediate Swelling Verified 03/15/15 11:58 of Lip/Tongue/Throat Liver Allergy Intermediate Swelling Verified 03/15/15 11:58 of Lip/Tongue/Throat Review of systems: REVIEW OF SYSTEMS: Patient has numerous complaints including but not limited to the following: - Constitutional Constitutional: Present: Fatigue. Absent: syncope, anorexia, night sweats - EENT Eyes: Absent: blurry vision, loss of vision, diplopia Ears: Absent: decreased hearing, ear pain, ear discharge - Cardiovascular Cardiovascular: Present: chest pain with movement, touch. Chronic dyspnea on exertion. Denies edema, palpitations. Denies claudication, - Respiratory Respiratory: Present: Chronic LINDO, cough. Absent: wheezing, hemoptysis, change in phlegm color - Gastrointestinal Gastrointestinal: Denies: constipation. Absent: abdominal pain, hematemesis, hematochezia, melena, change in bowel habits, nausea - Genitourinary Genitourinary: Absent: difficulty urinating, dysuria, urinary hesitancy, flank pain - Musculoskeletal Musculoskeletal: Present: back pain Absent: joint swelling, muscle cramps, muscle weakness - Neurological Neurological: Present: Poor gait without frequent falls. Dizziness. Reports prior and intermittent hemiparesis left upper extremity - Psychiatric Psychiatric: Absent: anxiety, depression, difficulty concentrating - Endocrine Endocrine: Present: fatigue. Absent: cold intolerance, heat intolerance, polyuria, polyphagia, polydipsia - Hematologic/Lymphatic Hematologic/Lymphatic: Present: easy bruising. Absent: easy bleeding -Integumentary Integumentary: Absent: lesions, rashes, skin breakdown Medical,Surgical,& Family Hx - Medical History Cardio: History of: Hypertension (medication), Cardiovascular Problems ( cardiomegaly) No history of: Cardiac Dysrhythmia, CAD, [place], Pacemaker, PVD, Valvular Heart Disease Neurology: History of: Peripheral Neuropathy (medication), Vertigo (medication as needed) No history of: Seizures HEENT: History of: Eye Problem (glasses) Endocrine: No history of: Diabetes Mellitus (IDDM), Diabetes Mellitus (NIDDM) Respiratory: History of: Bronchitis Gastrointestinal: History of: GERD (medication), Pancreatitis (3 years ago) No history of: Gastrointestinal Bleed - Surgical History Cardiac Surgeries: Sugical HX of: Cardiac Catheterization (2013) Patient Denies: Carotid Endarterectomy, Internal Defibrillator HEENT Surgeries: Patient denies: Carotid Endarterectomy Orthopedic Surgeries: Surgical HX of;: Orthopedic Surgery (Left knee arthroscopy 01/22/2017) Comment Only: Total Knee Replacement (having left knee scope done january 22 2017) - Family History Family History: Reports;: Family Diabetes (brothers), Family Hypertension ( brothers sister) - Social History Smoking Status: Never smoker Have you smoked in the last 12 months: No Frequency of Alcohol Use: None Type of Drug Use: None Marital Status: Lives With:: Spouse Functional capacity: uses cane/walker Physical Examination Vital Signs Temp Pulse Resp BP Pulse Ox 97.4 F L 90 18 113/65 95 05/05/17 12:47 05/05/17 12:47 05/05/17 12:47 05/05/17 12:47 05/05/17 12:47 General: [Appears well with no apparent distress.] [Pleasant and cooperative. ] [Appears comfortable.] HEENT: [PERRL, normocephalic, atraumatic. Mucous membranes moist. No jaundice noted. Conjunctiva moist and clear, sclerae anicteric] Neck: Unable to assess for JVD due to habitus. No thyromegaly or lymphadenopathy noted. No carotid bruit appreciated Cardiac: [Regular rate and rhythm.] [No obvious murmur rub or gallop.] Lungs: [Clear to auscultation without accessory muscle use to assist the respiratory pattern.] Using oxygen intermittently. Abdomen: Soft, bowel sounds normoactive. Nontender and nondistended. No abdominal bruit or thrill noted. No masses noted. Musculoskeletal: No fluid collection. Decreased range of motion is noted. Extremities: No clubbing, cyanosis noted. [ No edema noted.] Upper extremity pulses 2+. Lower extremity pulses 2+. Capillary refill less than 3 seconds. Skin: No unusual lesions or rashes. No skin breakdown appreciated. Neuro: Awake, alert and oriented 3. Moves all extremities well without hemiparesis or paralysis. No essential tremor is appreciated. Result/EKG - Labs CBC & BMP: 05/06/17 05:12 06/21/17 05:12 Lab Results: I have reviewed the past 24 hour labs Labs: Laboratory Results - last 24 hr 05/05/17 05/05/17 05/05/17 14:16 14:16 14:16 WBC RBC Hgb Hct MCV MCH MCHC RDW Plt Count MPV Neut % (Auto) Lymph % (Auto) [place] % (Auto) Eos % (Auto) Baso % (Auto) Neut # (Auto) Lymph # (Auto) [place] # (Auto) Eos # (Auto) Baso # (Auto) Immature Gran % Nucleated RBC % Immature Gran # Nucleated RBCs # INR 1.0 PT Patient/Control Mix 10.7 D Circ Anticoag PTT 29.0 Sodium 143 Potassium 3.6 Chloride 110 H Carbon Dioxide 25 Anion Gap 11.6 BUN 17 Creatinine 1.40 H GFR Calculation 72 BUN/Creatinine Ratio 12.00 Glucose 117 H POC Glucose Calculated Osmolality 287.0 Calcium 9.0 Magnesium 2.3 Total Bilirubin 0.40 AST 21 ALT 41 Alkaline Phosphatase 155 H Troponin I B-Natriuretic Peptide Total Protein 7.3 Albumin 4.1 Globulin 3.2 Albumin/Globulin Ratio 1.2 Triglycerides Cholesterol LDL Cholesterol VLDL Cholesterol HDL Cholesterol Heart Disease Risk Ratio Vitamin B12 25-OH Vitamin D Total Free T4 TSH 3rd Generation Urine Color Yellow Urine Appearance Clear Urine pH 5.0 Ur Specific [place] 1.020 Urine Protein Negative Urine Glucose (UA) Negative Urine Ketones Negative Urine Blood Negative Urine Nitrate Negative Urine Bilirubin Negative Urine Urobilinogen < 2.0 H Urine Leukocytes Negative Urine RBC <1 Urine WBC <1 Urine Mucus Occasional Ur Culture Indicated? Not indicated 05/05/17 05/05/17 05/05/17 14:16 14:16 17:46 WBC 6.9 RBC 4.67 Hgb 14.4 Hct 40.2 L MCV 86.1 L MCH 31 MCHC 35.8 RDW 13.4 Plt Count 223 MPV 10.9 Neut % (Auto) 58.7 Lymph % (Auto) 25.4 [place] % (Auto) 14.2 H Eos % (Auto) 1.3 Baso % (Auto) 0.3 Neut # (Auto) 4.0 Lymph # (Auto) 1.8 [place] # (Auto) 1.0 H Eos # (Auto) 0.1 Baso # (Auto) 0.0 Immature Gran % 0.1 Nucleated RBC % 0.0 Immature Gran # 0.01 Nucleated RBCs # 0.00 INR PT Patient/Control Mix Circ Anticoag PTT Sodium Potassium Chloride Carbon Dioxide Anion Gap BUN Creatinine GFR Calculation BUN/Creatinine Ratio Glucose POC Glucose Calculated Osmolality Calcium Magnesium Total Bilirubin AST ALT Alkaline Phosphatase Troponin I < 0.015 < 0.015 B-Natriuretic Peptide Total Protein Albumin Globulin Albumin/Globulin Ratio Triglycerides Cholesterol LDL Cholesterol VLDL Cholesterol HDL Cholesterol Heart Disease Risk Ratio Vitamin B12 25-OH Vitamin D Total Free T4 TSH 3rd Generation Urine Color Urine Appearance Urine pH Ur Specific [place] Urine Protein Urine Glucose (UA) Urine Ketones Urine Blood Urine Nitrate Urine Bilirubin Urine Urobilinogen Urine Leukocytes Urine RBC Urine WBC Urine Mucus Ur Culture Indicated? 05/05/17 05/06/17 05/06/17 20:54 00:36 05:12 WBC 5.3 RBC 4.57 Hgb 14.0 Hct 39.7 L MCV 86.9 L MCH 31 MCHC 35.3 RDW 13.2 Plt Count 203 MPV 11.2 Neut % (Auto) 60.7 Lymph % (Auto) 25.6 [place] % (Auto) 10.4 Eos % (Auto) 2.3 Baso % (Auto) 0.6 Neut # (Auto) 3.2 Lymph # (Auto) 1.4 [place] # (Auto) 0.6 Eos # (Auto) 0.1 Baso # (Auto) 0.0 Immature Gran % 0.4 Nucleated RBC % 0.0 Immature Gran # 0.02 Nucleated RBCs # 0.00 INR PT Patient/Control Mix Circ Anticoag PTT Sodium Potassium Chloride Carbon Dioxide Anion Gap BUN Creatinine GFR Calculation BUN/Creatinine Ratio Glucose POC Glucose Calculated Osmolality Calcium Magnesium Total Bilirubin AST ALT Alkaline Phosphatase Troponin I < 0.015 < 0.015 B-Natriuretic Peptide Total Protein Albumin Globulin Albumin/Globulin Ratio Triglycerides Cholesterol LDL Cholesterol VLDL Cholesterol HDL Cholesterol Heart Disease Risk Ratio Vitamin B12 25-OH Vitamin D Total Free T4 TSH 3rd Generation Urine Color Urine Appearance Urine pH Ur Specific [place] Urine Protein Urine Glucose (UA) Urine Ketones Urine Blood Urine Nitrate Urine Bilirubin Urine Urobilinogen Urine Leukocytes Urine RBC Urine WBC Urine Mucus Ur Culture Indicated? 05/06/17 05/06/17 05/06/17 05:12 05:12 05:12 WBC RBC Hgb Hct MCV MCH MCHC RDW Plt Count MPV Neut % (Auto) Lymph % (Auto) [place] % (Auto) Eos % (Auto) Baso % (Auto) Neut # (Auto) Lymph # (Auto) [place] # (Auto) Eos # (Auto) Baso # (Auto) Immature Gran % Nucleated RBC % Immature Gran # Nucleated RBCs # INR PT Patient/Control Mix Circ Anticoag PTT Sodium 146 H Potassium 3.4 L Chloride 110 H Carbon Dioxide 29 Anion Gap 10.4 BUN 15 Creatinine 1.30 GFR Calculation 81 BUN/Creatinine Ratio 11.00 Glucose 117 H POC Glucose Calculated Osmolality 291.6 Calcium 8.2 L Magnesium 2.6 H Total Bilirubin AST ALT Alkaline Phosphatase Troponin I B-Natriuretic Peptide 4 Total Protein Albumin Globulin Albumin/Globulin Ratio Triglycerides Cholesterol LDL Cholesterol VLDL Cholesterol HDL Cholesterol Heart Disease Risk Ratio Vitamin B12 459 25-OH Vitamin D Total 32.7 Free T4 TSH 3rd Generation Urine Color Urine Appearance Urine pH Ur Specific [place] Urine Protein Urine Glucose (UA) Urine Ketones Urine Blood Urine Nitrate Urine Bilirubin Urine Urobilinogen Urine Leukocytes Urine RBC Urine WBC Urine Mucus Ur Culture Indicated? 05/06/17 05/06/17 05:12 08:13 WBC RBC Hgb Hct MCV MCH MCHC RDW Plt Count MPV Neut % (Auto) Lymph % (Auto) [place] % (Auto) Eos % (Auto) Baso % (Auto) Neut # (Auto) Lymph # (Auto) [place] # (Auto) Eos # (Auto) Baso # (Auto) Immature Gran % Nucleated RBC % Immature Gran # Nucleated RBCs # INR PT Patient/Control Mix Circ Anticoag PTT Sodium Potassium Chloride Carbon Dioxide Anion Gap BUN Creatinine GFR Calculation BUN/Creatinine Ratio Glucose POC Glucose 104 Calculated Osmolality Calcium Magnesium Total Bilirubin AST ALT Alkaline Phosphatase Troponin I B-Natriuretic Peptide Total Protein Albumin Globulin Albumin/Globulin Ratio Triglycerides 102 Cholesterol 106 LDL Cholesterol 56.0 VLDL Cholesterol 20.4 HDL Cholesterol 37 L Heart Disease Risk Ratio 2.86 Vitamin B12 25-OH Vitamin D Total Free T4 0.99 TSH 3rd Generation 3.270 Urine Color Urine Appearance Urine pH Ur Specific [place] Urine Protein Urine Glucose (UA) Urine Ketones Urine Blood Urine Nitrate Urine Bilirubin Urine Urobilinogen Urine Leukocytes Urine RBC Urine WBC Urine Mucus Ur Culture Indicated? - Diagnostic Findings Procedure: Chest x-ray: report reviewed by me, CT: report reviewed by me, Ultrasound: report reviewed by me (Venous ultrasound lower extremities) - EKG EKG results: interpreted by me EKG shows: sinus rhythm <Brandie Tavares - Last Filed: 05/06/17 15:29> Assessment and Plan (1) Non-cardiac chest pain Status: Acute Current Visit: Yes (2) Hypertension Status: Chronic Current Visit: No Qualifiers: Hypertension type: essential hypertension Qualified Code(s): I10 - Essential (primary) hypertension (3) Cardiomyopathy Status: Chronic Current Visit: Yes Qualifiers: Cardiomyopathy type: other Qualified Code(s): I42.8 - Other cardiomyopathies (4) Dyslipidemia Status: Chronic Current Visit: Yes (5) TIA (transient ischemic attack) Status: Resolved Current Visit: Yes History of Present Illness - Consult Narrative History of present illness: Mr. Wheeler is a 51 year old male who has had knee pain was seen by orthopedics yesterday and became having chest pain and diaphoresis. He was admitted here was ruled out for myocardial infarct were asked to see. The patient had nonischemic cardiomyopathy and had left heart catheterization on September 30, 2013 that showed normal epicardial coronary arteries. EF now has improved to 40 % he has reproducible chest wall pain and left shoulder pain. He has been ruled out for myocardial infarction. The patient also had DVT and PE after knee surgery has been on anticoagulation. I have examined him with Mrs. Fernandez. I don't think further cardiovascular work up is needed on this admission. He has an appointment with Dr. Cortez on May 22 at [facility] in [place]. I recommend that he keep this appointment. I have nothing further to add at this time and will sign off. CC: Corrina Montelongo MD Review of systems: I agree as above Physical Examination Vital Signs Temp Pulse Resp BP Pulse Ox 97.4 F L 90 18 113/65 95 05/05/17 12:47 05/05/17 12:47 05/05/17 12:47 05/05/17 12:47 05/05/17 12:47 Patient is obese. He is very pleasant he has reproducible chest wall pain and left shoulder pain in the anterior compartment. Cardiovascular is unremarkable. He does not have an S3 gallop. Under the physical exam as above and I concur. Result/EKG - Labs CBC & BMP: 05/06/17 05:12 05/06/17 05:12 Labs: Laboratory Results - last 24 hr 05/05/17 05/05/17 05/06/17 17:46 20:54 00:36 WBC RBC Hgb Hct MCV MCH MCHC RDW Plt Count MPV Neut % (Auto) Lymph % (Auto) [place] % (Auto) Eos % (Auto) Baso % (Auto) Neut # (Auto) Lymph # (Auto) [place] # (Auto) Eos # (Auto) Baso # (Auto) Immature Gran % Nucleated RBC % Immature Gran # Nucleated RBCs # Sodium Potassium Chloride Carbon Dioxide Anion Gap BUN Creatinine GFR Calculation BUN/Creatinine Ratio Glucose POC Glucose Calculated Osmolality Calcium Magnesium Troponin I < 0.015 < 0.015 < 0.015 B-Natriuretic Peptide Triglycerides Cholesterol LDL Cholesterol VLDL Cholesterol HDL Cholesterol Heart Disease Risk Ratio Vitamin B12 25-OH Vitamin D Total Free T4 TSH 3rd Generation 05/06/17 05/06/17 05/06/17 05:12 05:12 05:12 WBC 5.3 RBC 4.57 Hgb 14.0 Hct 39.7 L MCV 86.9 L MCH 31 MCHC 35.3 RDW 13.2 Plt Count 203 MPV 11.2 Neut % (Auto) 60.7 Lymph % (Auto) 25.6 [place] % (Auto) 10.4 Eos % (Auto) 2.3 Baso % (Auto) 0.6 Neut # (Auto) 3.2 Lymph # (Auto) 1.4 [place] # (Auto) 0.6 Eos # (Auto) 0.1 Baso # (Auto) 0.0 Immature Gran % 0.4 Nucleated RBC % 0.0 Immature Gran # 0.02 Nucleated RBCs # 0.00 Sodium 146 H Potassium 3.4 L Chloride 110 H Carbon Dioxide 29 Anion Gap 10.4 BUN 15 Creatinine 1.30 GFR Calculation 81 BUN/Creatinine Ratio 11.00 Glucose 117 H POC Glucose Calculated Osmolality 291.6 Calcium 8.2 L Magnesium 2.6 H Troponin I B-Natriuretic Peptide 4 Triglycerides Cholesterol LDL Cholesterol VLDL Cholesterol HDL Cholesterol Heart Disease Risk Ratio Vitamin B12 25-OH Vitamin D Total Free T4 TSH 3rd Generation 05/06/17 05/06/17 05/06/17 05:12 05:12 08:13 WBC RBC Hgb Hct MCV MCH MCHC RDW Plt Count MPV Neut % (Auto) Lymph % (Auto) [place] % (Auto) Eos % (Auto) Baso % (Auto) Neut # (Auto) Lymph # (Auto) [place] # (Auto) Eos # (Auto) Baso # (Auto) Immature Gran % Nucleated RBC % Immature Gran # Nucleated RBCs # Sodium Potassium Chloride Carbon Dioxide Anion Gap BUN Creatinine GFR Calculation BUN/Creatinine Ratio Glucose POC Glucose 104 Calculated Osmolality Calcium Magnesium Troponin I B-Natriuretic Peptide Triglycerides 102 Cholesterol 106 LDL Cholesterol 56.0 VLDL Cholesterol 20.4 HDL Cholesterol 37 L Heart Disease Risk Ratio 2.86 Vitamin B12 459 25-OH Vitamin D Total 32.7 Free T4 0.99 TSH 3rd Generation 3.270 05/06/17 11:36 WBC RBC Hgb Hct MCV MCH MCHC RDW Plt Count MPV Neut % (Auto) Lymph % (Auto) [place] % (Auto) Eos % (Auto) Baso % (Auto) Neut # (Auto) Lymph # (Auto) [place] # (Auto) Eos # (Auto) Baso # (Auto) Immature Gran % Nucleated RBC % Immature Gran # Nucleated RBCs # Sodium Potassium Chloride Carbon Dioxide Anion Gap BUN Creatinine GFR Calculation BUN/Creatinine Ratio Glucose POC Glucose 157 H Calculated Osmolality Calcium Magnesium Troponin I B-Natriuretic Peptide Triglycerides Cholesterol LDL Cholesterol VLDL Cholesterol HDL Cholesterol Heart Disease Risk Ratio Vitamin B12 25-OH Vitamin D Total Free T4 TSH 3rd Generation
[2017-05-06] MEDS: LOSARTAN 50 MG TABLET PO SCH (10:30)
[2017-05-06] MEDS: MOMETASONE/FORMOTEROL 200-5 INHALER 8.8 GM INH SCH ×2 (10:30→20:12)
[2017-05-06] MEDS: MONTELUKAST 10 MG TABLET PO SCH (10:31)
[2017-05-06] MEDS: ATORVASTATIN 20 MG TABLET PO SCH (10:31)
[2017-05-06] MEDS: APIXABAN 5 MG TABLET PO SCH ×2 (10:31→22:06)
[2017-05-06] MEDS: METOPROLOL TARTRATE 100 MG TABLET PO SCH ×2 (10:31→22:14)
[2017-05-06] MEDS: ISOSORBIDE MONONITRATE 30 MG TABLET PO SCH (10:31)
[2017-05-06] MEDS: traMADol 50 MG TABLET PO SCH ×2 (10:32→22:05)
[2017-05-06] MEDS: THEOPHYLLINE ER 300 MG TABLET PO SCH ×2 (10:32→22:02)
[2017-05-06] MEDS: amLODIPine 10 MG TABLET PO SCH (10:32)
[2017-05-06] MEDS: ACETAMINOPHEN 325 MG TABLET PO SCH ×2 (10:33→22:03)
[2017-05-06] MEDS: FUROSEMIDE 40 MG TABLET PO SCH (10:33)
[2017-05-06] MEDS: PANTOPRAZOLE 40 MG TABLET PO SCH ×2 (10:33→20:12)
--- NOTE | 2017-05-06 14:48 | Magnetic Resonance Report ---
MR shoulder LT wo con Indication: Left shoulder pain Comparison: None Technique: Magnetic resonance imaging of the left shoulder was performed without the use of intravenous contrast. Findings: Acromion and acromioclavicular joint: There are mild degenerative changes in the acromioclavicular joint. The acromial undersurface is flat. Subacromial space: There is no evidence of abnormal fluid in the subacromial/subdeltoid bursa. Rotator cuff: There is a partial (approximate 50% thickness) tear involving the conjoined supraspinatus/infraspinatus tendon near its attachment. Tendon of the long head of the biceps: The long head of the biceps tendon is intact. Labrum and labral anchor: Poorly visualized on this nonarthrogram study without gross evidence of tear. Osseous structures: Mild subchondral cystic change of the lateral humeral head. Marrow signal otherwise unremarkable. Glenohumeral Joint: There is no evidence of significant glenohumeral joint effusion. The cartilage is unremarkable. IMPRESSION: There is a partial (approximate 50% thickness) tear involving the conjoined supraspinatus/infraspinatus tendon near its attachment. Mild degenerative change of the acromioclavicular joint. PROCEDURE INTERPRETED AT [facility] DEPARTMENT OF RADIOLOGY Final Report Signed by: Dr Ismael Burgos
--- NOTE | 2017-05-06 17:23 | Sleep Medicine Consult ---
Assessment and Plan (1) Unspecified sleep apnea Status: Acute Assessment and plan: This patient does have symptoms concerning for sleep apnea with snoring and abnormal breathing during sleep witnessed by his . With his comorbidities, polysomnography or sleep evaluation is indicated. We will start with HST evaluation tonight. Current Visit: Yes (2) Hypertension Status: Chronic Assessment and plan: The prevalence rate for obstructive sleep apnea patients with hypertension is 35 %. That rate can be as high as 80% in patients who require 4 or more medications for blood pressure control. Current Visit: No Qualifiers: Hypertension type: essential hypertension Qualified Code(s): I10 - Essential (primary) hypertension (3) Cardiomyopathy Status: Chronic Assessment and plan: Untreated sleep apnea could certainly exacerbate cardiomyopathy. Cardiomyopathy could also be associated with central sleep apnea as well as obstructive sleep apnea. We will follow up on HST results. Current Visit: Yes Qualifiers: Cardiomyopathy type: other Qualified Code(s): I42.8 - Other cardiomyopathies History of Present Illness Chief complaint: Sleep apnea History of present illness: Mr. Wheeler is a 51 year old male with a history of nonischemic cardiomyopathy admitted with chest pain and left arm numbness. It is thought that he is experiencing a TIA. There was concern for sleep apnea and sleep medicine was consulted. He actually had been scheduled to see me in sleep clinic at [facility] tomorrow. He resides in [place]. He does have a history of snoring and abnormal breathing during sleep with witnessed apneas. He will awaken from sleep short of breath. He does have discomfort in his legs. He denies any significant sleepiness during the day. He has an irregular sleep schedule. He sometimes will go to bed at dark and will awaken at 1 or 2 in the morning. He has never had previous sleep study evaluation. He does have significant health issues that include his nonischemic cardiomyopathy. His ejection fraction was 40% on last evaluation. He also has had previous pulmonary embolism. He has a stop bang score of 6 and an [place] sleepiness score of [place]. Home Medications Medication Instructions Recorded Confirmed Type Aspirin [Ecotrin] 81 mg PO DAILY 03/15/15 05/05/17 History Gabapentin 300 mg PO Q8HR 03/15/15 05/05/17 History Losartan [Cozaar] 100 mg PO DAILY 03/15/15 05/05/17 History Theophylline ER Tab 300 mg PO BID 03/15/15 05/05/17 History Mometasone/Formoterol 200-5 2 puff INH BID 01/22/17 05/05/17 History [Dulera 200-5] Montelukast Tab [Singulair Tab] 10 mg PO DAILY 01/22/17 05/05/17 History Albuterol/Ipratropium Neb [Duoneb] 3 ml RESP TX RT QID 01/24/17 05/05/17 History Fluticasone Propionate [Flonase 1 spray BOTH NARES DAILY 01/24/17 05/05/17 History Allergy Relief] Omeprazole 20 mg PO BID 01/24/17 05/05/17 History Apixaban [Eliquis] 10 mg PO BID #28 tablet 01/30/17 05/05/17 Rx amLODIPine [Norvasc] 10 mg PO DAILY #30 tablet 01/30/17 05/05/17 Rx Albuterol Inhaler [Proventil 2 puff INH BID 05/05/17 05/05/17 History Inhaler] Atorvastatin Calcium 20 mg PO DAILY 05/05/17 05/05/17 History Ergocalciferol [Drisdol] 50,000 unit PO Q7DAY 05/05/17 05/05/17 History Furosemide Tab [Lasix Tab] 40 mg PO DAILY 05/05/17 05/05/17 History Isosorbide Mononitrate [Isosorbide 30 mg PO DAILY 05/05/17 05/05/17 History Mononitrate ER] Metoprolol Tartrate Tab [Lopressor 100 mg PO BID 05/05/17 05/05/17 History Tab] hydrALAZINE TAB [Apresoline Tab] 50 mg PO TID 05/05/17 05/05/17 History Allergies Allergy/AdvReac Type Severity Reaction Status Date / Time Eggplant Allergy Intermediate Swelling Verified 03/15/15 11:58 of Lip/Tongue/Throat Liver Allergy Intermediate Swelling Verified 03/15/15 11:58 of Lip/Tongue/Throat Review of systems: Negative for nocturia or significant restless legs. He does have kicking and jerking of his legs during sleep. Exam (Pulmonay) H&P - Constitutional Vitals: Period Temp Pulse Resp BP Sys/Martini Pulse Ox Last 24 Hr 97.5 F-98.4 F 71-90 16-20 98-137/55-83 95-97 Exam: He is alert and responsive in no acute distress. Pupils equal round reactive to light and accommodation. Extraocular movements intact. Oropharynx with a class III Mallampati exam. Neck circumference is 20 inches. Neck is large and supple without adenopathy or thyromegaly. No supraclavicular adenopathy is noted. Chest with symmetrical breath sounds without focal wheeze, rhonchi, or rales. Cardiac exam reveals a regular rhythm without murmur or gallop. Abdomen obese nontender without palpable hepatosplenomegaly or mass. Extremities without significant clubbing, cyanosis, or edema. Medical,Surgical,& Family Hx - Medical History Cardio: History of: Hypertension (medication), Cardiovascular Problems ( cardiomegaly) No history of: Cardiac Dysrhythmia, CAD, [place], Pacemaker, PVD, Valvular Heart Disease Neurology: History of: Peripheral Neuropathy (medication), Vertigo (medication as needed) No history of: Seizures HEENT: History of: Eye Problem (glasses) Endocrine: No history of: Diabetes Mellitus (IDDM), Diabetes Mellitus (NIDDM) Respiratory: History of: Bronchitis Gastrointestinal: History of: GERD (medication), Pancreatitis (3 years ago) No history of: Gastrointestinal Bleed - Surgical History Cardiac Surgeries: Sugical HX of: Cardiac Catheterization (2013) Patient Denies: Carotid Endarterectomy, Internal Defibrillator HEENT Surgeries: Patient denies: Carotid Endarterectomy Orthopedic Surgeries: Surgical HX of;: Orthopedic Surgery (Left knee arthroscopy 01/22/2017) Comment Only: Total Knee Replacement (having left knee scope done january 22 2017) - Family History Family History: Reports;: Family Diabetes (brothers), Family Hypertension ( brothers sister) - Social History Smoking Status: Never smoker Frequency of Alcohol Use: None Type of Drug Use: None Results - Labs CBC & BMP: 05/06/17 05:12 05/06/17 05:12 Lab Results: I have reviewed the past 24 hour labs Labs: TSH is within normal limits.
--- NOTE | 2017-05-06 18:46 | ECHO Report ---
Thad Wheeler Exam Date: 05/06/2017 10:12 Referring Physician: Technologist: Bria Cruz Age: 51 Ht (in): 67 Wt (lb): 241 Gender: M Exam Location: [facility] Echo Indications: Essential (primary) hypertension, Chest pain, unspecified, Non ischemic cardiomyopathy BP: 107 / 61 HR: 75 Rhythm: Sinus Technical Quality: average IMPRESSIONS Left ventricular ejection fraction is estimated at 40 %. Mild concentric left ventricular hypertrophy with grade 1 diastolic dysfunction. Tricuspid regurgitation velocities suggest a RVSP of 18 mmHg. MEASUREMENTS (Male / Female) Normal Values 2D ECHO LV Diastolic Diameter PLAX 4.6 cm 4.2 - 5.9 / 3.9 - 5.3 cm LV Systolic Diameter PLAX 3.0 cm LV Fractional Shortening PLAX 34.3 % IVS Diastolic Thickness 1.6 cm 0.6 - 1.0 / 0.6 - 0.9 cm LVPW Diastolic Thickness 1.4 cm 0.6 - 1.0 / 0.6 - 0.9 cm RV Internal Dim ED PLAX 2.4 cm Aortic Root Diameter 2.6 cm LA Systolic Diameter LX 3.5 cm 3.0 - 4.0 / 2.7 - 3.8 cm DOPPLER TR Peak Velocity 210.0 cm/s TR Peak Gradient 17.6 mmHg FINDINGS Left Ventricle Moderately increased septal wall thickness. Mild concentric left ventricular hypertrophy with grade 1 diastolic dysfunction. Left ventricular ejection fraction is estimated at 40 %. Right Ventricle Normal right ventricular size. Right Atrium Normal right atrial size. Left Atrium Normal left atrial size. Mitral Valve Mild mitral valve sclerosis. Trace mitral valve regurgitation. Aortic Valve Mild aortic valve sclerosis. Trace aortic valve regurgitation. Tricuspid Valve Morphologically normal tricuspid valve. Mild tricuspid valve regurgitation. Tricuspid regurgitation velocities suggest a RVSP of 18 mmHg. Pulmonic Valve Morphologically normal pulmonic valve. Trace pulmonary valve regurgitation. Pericardium No pericardial effusion. Aorta Normal size aortic root and proximal ascending aorta. Brandie Tavares (Electronically Signed) Final Date: 06 May 2017 18:45
[2017-05-06] MEDS: ONDANSETRON 4 MG/2 ML VIAL IV PRN (20:04)
[2017-05-07] MEDS: ONDANSETRON 4 MG/2 ML VIAL IV PRN (04:19)
[2017-05-07 04:46] LABS: Basophils # 0.1 10*3/uL (0.0-0.2); Basophils % 0.8 % (0.0-0.8); Eosinophils # 0.1 10*3/uL (0.0-0.87); Eosinophils % 2.2 % (0.00-10.9); Hematocrit 40.4 VOL% (42.0-52.0); Hemoglobin 14.2 GM/DL (14.0-18.0); Immature Granulocytes % 0.2 %; Immature Granulocytes Absolute 0.01 #; Lymphocytes # 1.9 10*3/uL (1.4-4.0); Lymphocytes % 31.6 % (21.2-54.2); Mean Corpuscular HGB Conc 35.1 GM/DL (32-36); Mean Corpuscular Hemoglobin 31 PG (27-34); Mean Corpuscular Volume 87.6 FL (87-102); Mean Platelet Volume 11.3 FL (9.6-12.0); Monocytes # 0.9 10*3/uL (0.11-0.8); Neutrophils % 50.2 % (38.7-73.9); Platelet Count 225 T/CUMM (130-400); Red Blood Count 4.61 MC/CUMM (3.8-5.5)
[2017-05-07 05:08] LABS: Calcium 8.9 MG/DL (8.5-10.1); Magnesium 2.5 MG/DL (1.8-2.4); Osmolality,Calculated 281.3 MOS/KG (273-304); Potassium 3.5 MMOL/L (3.5-5.1)
[2017-05-07] MEDS: GABAPENTIN 300 MG CAPSULE PO SCH (06:34)
[2017-05-07] MEDS: INSULIN LISPRO 100 UNIT/ML SUBCUT SCH ×2 (07:49→12:33)
[2017-05-07 07:56] VITALS: BP 133/81
--- NOTE | 2017-05-07 08:15 | Orthopedic Consult Note ---
History of Present Illness Chief complaint: Left shoulder pain History of present illness: Mr. Wheeler is a 51 year old male admitted for cardiac workup secondary to chest pain shortness of breath earlier this week he is known to me for having had previous knee op knee scope. He complains of intermittent pain in the left shoulder which prompted a recent MRI on this admission partial thickness tearing was noted of his rotator cuff and I was asked to evaluate he does not recall any recent trauma. Examination confirms functional range of motion with mild discomfort at extremes of full forward flexion abduction is strength remaining intact no pain with palpation anteriorly mild over the anterolateral acromion tuberosity MRI confirming confirming a thinning of the cuff midsubstance approximately 2 cm from insertion but I do not see a full detachment. Impression rotator cuff tendinitis left Appeared plan I discussed with him his MRI findings this should be able to be managed nonoperatively I discussed with him the usefulness of oral anti- inflammatory agents that is that he can take without complicating his cardiac issues. We will get OT to see him give him some exercises to work on he is following up with me in 1 month for his knee. Home Medications Medication Instructions Recorded Confirmed Type Aspirin [Ecotrin] 81 mg PO DAILY 03/15/15 05/05/17 History Gabapentin 300 mg PO Q8HR 03/15/15 05/05/17 History Losartan [Cozaar] 100 mg PO DAILY 03/15/15 05/05/17 History Theophylline ER Tab 300 mg PO BID 03/15/15 05/05/17 History Mometasone/Formoterol 200-5 2 puff INH BID 01/22/17 05/05/17 History [Dulera 200-5] Montelukast Tab [Singulair Tab] 10 mg PO DAILY 01/22/17 05/05/17 History Albuterol/Ipratropium Neb [Duoneb] 3 ml RESP TX RT QID 01/24/17 05/05/17 History Fluticasone Propionate [Flonase 1 spray BOTH NARES DAILY 01/24/17 05/05/17 History Allergy Relief] Omeprazole 20 mg PO BID 01/24/17 05/05/17 History Apixaban [Eliquis] 10 mg PO BID #28 tablet 01/30/17 05/05/17 Rx amLODIPine [Norvasc] 10 mg PO DAILY #30 tablet 01/30/17 05/05/17 Rx Albuterol Inhaler [Proventil 2 puff INH BID 05/05/17 05/05/17 History Inhaler] Atorvastatin Calcium 20 mg PO DAILY 05/05/17 05/05/17 History Ergocalciferol [Drisdol] 50,000 unit PO Q7DAY 05/05/17 05/05/17 History Furosemide Tab [Lasix Tab] 40 mg PO DAILY 05/05/17 05/05/17 History Isosorbide Mononitrate [Isosorbide 30 mg PO DAILY 05/05/17 05/05/17 History Mononitrate ER] Metoprolol Tartrate Tab [Lopressor 100 mg PO BID 05/05/17 05/05/17 History Tab] hydrALAZINE TAB [Apresoline Tab] 50 mg PO TID 05/05/17 05/05/17 History Allergies Allergy/AdvReac Type Severity Reaction Status Date / Time Eggplant Allergy Intermediate Swelling Verified 03/15/15 11:58 of Lip/Tongue/Throat Liver Allergy Intermediate Swelling Verified 03/15/15 11:58 of Lip/Tongue/Throat Medical,Surgical,& Family Hx - Medical History Cardio: History of: Hypertension (medication), Cardiovascular Problems ( cardiomegaly) No history of: Cardiac Dysrhythmia, CAD, [place], Pacemaker, PVD, Valvular Heart Disease Neurology: History of: Peripheral Neuropathy (medication), Vertigo (medication as needed) No history of: Seizures HEENT: History of: Eye Problem (glasses) Endocrine: No history of: Diabetes Mellitus (IDDM), Diabetes Mellitus (NIDDM) Respiratory: History of: Bronchitis Gastrointestinal: History of: GERD (medication), Pancreatitis (3 years ago) No history of: Gastrointestinal Bleed - Surgical History Cardiac Surgeries: Sugical HX of: Cardiac Catheterization (2013) Patient Denies: Carotid Endarterectomy, Internal Defibrillator HEENT Surgeries: Patient denies: Carotid Endarterectomy Orthopedic Surgeries: Surgical HX of;: Orthopedic Surgery (Left knee arthroscopy 01/22/2017) Comment Only: Total Knee Replacement (having left knee scope done january 22 2017) - Family History Family History: Reports;: Family Diabetes (brothers), Family Hypertension ( brothers sister) - Social History Smoking Status: Never smoker Frequency of Alcohol Use: None Type of Drug Use: None Exam - Constitutional Vitals: Period Temp Pulse Resp BP Sys/Martini Pulse Ox Last 24 Hr 97.4 F-98.9 F 73-90 16-20 120-137/58-82 90-99 Results - Labs CBC & BMP: 05/07/17 03:48 05/07/17 03:48
[2017-05-07] MEDS: THEOPHYLLINE ER 300 MG TABLET PO SCH (08:51)
[2017-05-07] MEDS: LOSARTAN 50 MG TABLET PO SCH (08:51)
[2017-05-07] MEDS: PANTOPRAZOLE 40 MG TABLET PO SCH (08:52)
[2017-05-07] MEDS: traMADol 50 MG TABLET PO SCH (08:52)
[2017-05-07] MEDS: APIXABAN 5 MG TABLET PO SCH (08:52)
[2017-05-07] MEDS: MONTELUKAST 10 MG TABLET PO SCH (08:52)
[2017-05-07] MEDS: ACETAMINOPHEN 325 MG TABLET PO SCH (08:52)
[2017-05-07] MEDS: METOPROLOL TARTRATE 100 MG TABLET PO SCH (08:52)
[2017-05-07] MEDS: amLODIPine 10 MG TABLET PO SCH (08:53)
[2017-05-07] MEDS: ATORVASTATIN 20 MG TABLET PO SCH (08:53)
[2017-05-07] MEDS: ISOSORBIDE MONONITRATE 30 MG TABLET PO SCH (08:53)
[2017-05-07] MEDS: FUROSEMIDE 40 MG TABLET PO SCH (08:53)
[2017-05-07] MEDS: MOMETASONE/FORMOTEROL 200-5 INHALER 8.8 GM INH SCH (08:53)
--- NOTE | 2017-05-07 09:19 | Discharge Summary ---
Hospital Course - Hospital Course Hospital Course: Pt is a 51 year old male with a history of CHF (nonischemic) and recent left knee arthroscopy who presented to the hospital with atypical chest pain. He was placed on the chest pain pathway and ruled out for ACS. CT cervical spine and MRI shoulder was done due to the chest pain being reproducible on exam. MRI shoulder showed a 50% tear of rotator cuff. Ortho was consulted who recommended OT. CT cervical spine was unremarkable. Pt was continued on pain medication for musculoskeletal pain. For HTN, pt was continued on his home medication. Orthostatics were checked and were negative. ECHO was done and showed EF 40%. Cardiology was following patient and no further ischemic workup was indicated. TSH was within normal limits. I have encouraged pt to F/U at his previously scheduled appointment for a sleep study for AIDA. For history of PE, he was continued on Eliquis. Once he was cleared by all consultants, pt was discharged to home with family and outpt appointment for orthopedics in 1 month, cardiology as needed and sleep lab as previously directed. - Time spent with patient Time with patient DS: Greater than 30 minutes (35 minutes) Specialty Discharge - Follow Up or Referrals Follow up with: Ginna Bruce [Physician] - 05/21/17 2:00 pm Jasvir Knutson Jr., MD [Physician] - 06/04/17 12:20 pm Ashlyn Cortez MD [Physician] - 06/23/17 3:00 pm (as directed/ previously arranged) Discharge Plan - Discharge Data Disposition: Disch To Home/Self Care Condition at Discharge: Stable Discharge Diet: heart healthy Activity: as per physical therapy Contact your physician if you experience:: fever over 101, Difficulty voiding, Redness or swelling, Nausea/Vomiting, Shortness of breath, Bleeding, pain uncontrolled by pain medications - Discharge Medications New Acetaminophen Tab [Tylenol Tab] 325 mg PO BID #28 tablet Docusate Sodium Cap [Colace Cap] 100 mg PO BID PRN capsule PRN Reason: Constipation traMADol TAB [Ultram] 50 mg PO BID #28 tablet Glucagon 1 mg IM PRN PRN vial PRN Reason: Hypoglycemia w/o IV access Continue Losartan [Cozaar] 100 mg PO DAILY Gabapentin 300 mg PO Q8HR Aspirin [Ecotrin] 81 mg PO DAILY Theophylline ER Tab 300 mg PO BID Mometasone/Formoterol 200-5 [Dulera 200-5] 2 puff INH BID Fluticasone Propionate [Flonase Allergy Relief] 1 spray BOTH NARES DAILY Apixaban [Eliquis] 10 mg PO BID #28 tablet Atorvastatin Calcium 20 mg PO DAILY Metoprolol Tartrate Tab [Lopressor Tab] 100 mg PO BID hydrALAZINE TAB [Apresoline Tab] 50 mg PO TID Isosorbide Mononitrate [Isosorbide Mononitrate ER] 30 mg PO DAILY Montelukast Tab [Singulair Tab] 10 mg PO DAILY Omeprazole 20 mg PO BID Albuterol/Ipratropium Neb [Duoneb] 3 ml RESP TX RT QID amLODIPine [Norvasc] 10 mg PO DAILY #30 tablet Furosemide Tab [Lasix Tab] 40 mg PO DAILY Ergocalciferol [Drisdol] 50,000 unit PO Q7DAY Albuterol Inhaler [Proventil Inhaler] 2 puff INH BID - Follow Up or Referral Follow Up: Ginna Bruce [Physician] - 05/21/17 2:00 pm Jasvir Knutson Jr., MD [Physician] - 06/04/17 12:20 pm Ashlyn Cortez MD [Physician] - 06/23/17 3:00 pm (as directed/ previously arranged) - Forms/Instructions Instructions: Chest Pain (DC) Exam - Constitutional Vitals: Period Temp Pulse Resp BP Sys/Martini Pulse Ox Last 24 Hr 97.4 F-98.9 F 73-90 16-20 120-137/58-82 90-99 Discharge Results Procedures and tests throughout hospitalization: Pending Orders 05/08/17 04:00 BMP w/ Mg [Basic Metabolic Panel w/Mg] IN AM CBC [Comp Blood Count Auto Diff] IN AM Labs on day of discharge: Labs from last 24 hours 05/07/17 05/07/17 05/07/17 07:47 03:48 03:48 WBC 6.0 RBC 4.61 Hgb 14.2 Hct 40.4 L MCV 87.6 MCH 31 MCHC 35.1 RDW 13.0 Plt Count 225 MPV 11.3 Neut % (Auto) 50.2 Lymph % (Auto) 31.6 [place] % (Auto) 15.0 H Eos % (Auto) 2.2 Baso % (Auto) 0.8 Neut # (Auto) 3.0 Lymph # (Auto) 1.9 [place] # (Auto) 0.9 H Eos # (Auto) 0.1 Baso # (Auto) 0.1 Immature Gran % 0.2 Nucleated RBC % 0.0 Immature Gran # 0.01 Nucleated RBCs # 0.00 Sodium 141 Potassium 3.5 Chloride 107 Carbon Dioxide 26 Anion Gap 11.5 BUN 14 Creatinine 1.20 GFR Calculation 89 BUN/Creatinine Ratio 11.00 Glucose 105 POC Glucose 129 H Calculated Osmolality 281.3 Calcium 8.9 Magnesium 2.5 H 05/06/17 05/06/17 05/06/17 19:14 15:36 11:36 WBC RBC Hgb Hct MCV MCH MCHC RDW Plt Count MPV Neut % (Auto) Lymph % (Auto) [place] % (Auto) Eos % (Auto) Baso % (Auto) Neut # (Auto) Lymph # (Auto) [place] # (Auto) Eos # (Auto) Baso # (Auto) Immature Gran % Nucleated RBC % Immature Gran # Nucleated RBCs # Sodium Potassium Chloride Carbon Dioxide Anion Gap BUN Creatinine GFR Calculation BUN/Creatinine Ratio Glucose POC Glucose 145 H 121 H 157 H Calculated Osmolality Calcium Magnesium DS: Provider Date of admission: 05/05/17 15:30 Primary care physician: Jose Ricardo MD Attending physician on admission: Corrina Montelongo MD Consults: 05/05/17 19:19 Consult to Physician [CONS] Routine Comment: Consulting Provider: Cardiology - [facility] Consult to Specialist Group: Cardiology When should Consulting Provider be notified: In am Person Notified: RAY Date Notified: 05/06/17 Time Notified: 08:10 05/06/17 10:07 Consult to Physical Therapy [CONS] Routine Reason for Physical Therapy: Evaluate and Treat Start Therapy: Today Consult Comment: Reports recent TIA, weakness. 05/06/17 10:10 Consult to Sleep Center [CONS] Routine Reason for Sleep Center: Sleep Center Physician Consult Comment: SUSPECTED SLEEP Apnea 05/06/17 15:08 Consult to Physician [CONS] Routine Comment: Consulting Provider: [facility] Consult to Specialist Group: Orthopedic Person Notified: MARILEE CHRISTINA Date Notified: 05/06/17 Time Notified: 15:20 05/07/17 08:15 Consult to Occupational Therapy [CONS] Routine Reason for Occupational Therapy: Evaluate and Treat Consult Comment: Rotator cuff exercises teach home program for range of motion and cuff stre Discharging clinician: Corrina Montelongo MD
--- NOTE | 2017-05-07 12:57 | Sleep Medicine Progress Note ---
Assessment and Plan (1) Unspecified sleep apnea Status: Acute Current Visit: Yes (2) Hypertension Status: Chronic Current Visit: No Qualifiers: Hypertension type: essential hypertension Qualified Code(s): I10 - Essential (primary) hypertension (3) Cardiomyopathy Status: Chronic Current Visit: Yes Qualifiers: Cardiomyopathy type: other Qualified Code(s): I42.8 - Other cardiomyopathies Sleep Medicine Subjective Interval history: Patient's HST evaluation did not show significant sleep apnea. I do have a high suspicion that he does have sleep apnea and we have set him up for outpatient sleep study on 05/14 at [facility]. Thank you for this consult. This was discussed with he and his . Exam (Progress Note) - Constitutional Vitals: Period Temp Pulse Resp BP Sys/Martini Pulse Ox Last 24 Hr 97.4 F-98.9 F 73-83 16-20 120-133/58-82 90-99 Results - Labs CBC & BMP: 05/07/17 03:48 05/07/17 03:48 Specialty Discharge - Follow Up or Referrals Follow up with: Ginna Bruce [Physician] - 05/21/17 2:00 pm Jasvir Knutson Jr., MD [Physician] - 06/04/17 12:20 pm Ashlyn Cortez MD [Physician] - 06/23/17 3:00 pm (as directed/ previously arranged)
== END 2017-05-07 13:10 | disposition home or self-care (01) ==
LOC: N.ED 12:38 → N.EDINP 12:38 → N.TELEN 16:39
PROVIDERS: ADMIT Pediatrics; ATTEND Pediatrics